=== PATIENT | female | born 1935 | race Caucasian/White ===

== ENCOUNTER 2021-05-20 16:00 | Inpatient (IN) | payer MEDICARE, OTHER ==
[2021-05-20] MEDS ORDERED: Furosemide 20 MG/2 ML VIAL IVPUSH ONE (17:00)
[2021-05-20] MEDS ORDERED: Ondansetron 4 MG/2 ML SDV IVPUSH PRN (17:00)
[2021-05-20] MEDS ORDERED: Acetaminophen 325 MG Tab PO PRN (17:00)
--- NOTE | 2021-05-20 17:02 | PCM.HP.2 ---
H&P History of Present Illness - General Date of Service: 05/20/21 Admit Problem/Dx: Admission Diagnosis/Problem Admission Diagnosis/Problem CHF, Congestive heart failure - History of Present Illness Initial Comments - Free Text/Narative: Patient is an 86-year-old female with past medical history of diabetes, hyperlipidemia, hypertension, possible CKD elevated (creatinine in the past) who comes to the emergency department with her in respiratory distress. Patient has a home pulse oximeter and an oxygen concentrator for the last week secondary to being diagnosed with pneumonia recently and her home O2 sat was in the 60s. Patient does have a nonproductive cough. She denies any fever or shaking chills. She had a negative Covid test approximately 1 week ago. She denies any change to her sense of smell or taste. She has not been nauseous vomiting or having diarrhea. She has had no dysuria or any swelling to her ankles. She denies any other Covid symptoms. Patient is not having any ortho pnea. She does have a history of COPD. She denies any history of CHF. Is here for very cyanotic with an O2 sat of 66 on 2 L nasal cannula. With 5 L nasal cannula she is up to 90% pulse ox. Chest x-ray was significant for pulmonary edema no infiltrate was recognized, patient received IV remdesivir and IV antibiotics for presumed Covid pneumonia but after the work-up was complete with elevated proBNP as well as chest x-ray findings patient was found to be in CHF and treated with IV Lasix. Patient was requiring 5 L of oxygen to keep pulse ox between 91 to 92%. Patient was transferred to [facility] as there were no beds available in [facility]. - Related Data Allergies/Adverse Reactions: Allergies Allergy/AdvReac Type Severity Reaction Status Date / Time No Known Allergies Allergy Verified 05/20/21 16:41 Home Medications: Home Meds Calcium Carbonate [Calcium] 500 mg PO DAILY 08/07/16 [History] Multivit-Min/Iron/Folic/Lutein [Centrum Silver Women Tablet] 1 tab PO DAILY 08/07/16 [History] Simvastatin [Zocor] 40 mg PO BEDTIME 08/07/16 [History] Ibuprofen 200 mg PO Q6H PRN 06/28/19 [History] Gabapentin [Neurontin] 100 mg PO DAILY 05/20/21 [History] Promethazine HCl/Codeine [Prometh-Codein 6.25-10 mg/5 ml] 5 ml PO Q6HR PRN 05/20/21 [History] amLODIPine [Norvasc] 5 mg PO DAILY 05/20/21 [History] azaTHIOprine [Imuran] 100 mg PO DAILY 05/20/21 [History] Past Medical History HEENT History: Reports: Cataract, Hard of Hearing, Impaired Vision Other HEENT History: uses hearing aid Cardiovascular History: Reports: High Cholesterol, Hypertension Respiratory History: Reports: COPD, Other (See Below) Other Respiratory History: hypoxia Gastrointestinal History: Reports: Chronic Constipation, Hemorrhoids Musculoskeletal History: Reports: Arthritis, Back Pain, Chronic Endocrine/Metabolic History: Reports: Obesity/BMI 30+ Oncologic (Cancer) History: Reports: Colon - Infectious Disease History Other Infectious Disease History: Got Flu shot in April. - Past Surgical History HEENT Surgical History: Reports: Cataract Surgery GI Surgical History: Reports: Appendectomy, Colonoscopy Female Surgical History: Reports: Hysterectomy Social & Family History - Family History Cardiac: Reports: [place] Other Cardiac Family History: mother, father - Caffeine Use Caffeine Use: Reports: Coffee Other Caffeine Use: 3 cups/day H&P Review of Systems - Review of Systems: Review Of Systems: See Below General: Reports: Malaise, Weakness, Fatigue. Denies: Fever, Chills Pulmonary: Reports: Shortness of Breath, Cough. Denies: Wheezing, Pleuritic Chest Pain Gastrointestinal: Denies: Abdominal Pain, Anorexia, Black Stool Genitourinary: Denies: Dysuria, Frequency, Burning Musculoskeletal: Denies: Neck Pain, Shoulder Pain, Arm Pain Skin: Reports: Cyanosis. Denies: Jaundice, Mottled, Diaphoresis Psychiatric: Denies: Confusion, Depression, Mood Lability Neurological: Denies: Confusion, Dizziness, Headache Hematologic/Lymphatic: Denies: Anemia, Easy Bleeding, Easy Bruising, Swollen Glands Exam - Exam Exam: See Below - Vital Signs Vital Signs: Last Vital Signs Temp 36.4 C 05/20/21 16:00 Pulse 82 05/20/21 16:00 Resp 20 05/20/21 16:00 BP 136/64 05/20/21 16:00 Pulse Ox 92 L 05/20/21 16:00 Weight: 72.802 kg - Exam Quality Assessment: Supplemental Oxygen General: Alert, Oriented, Cooperative, Mild Distress Neck: Supple, Trachea Midline Lungs: Normal Respiratory Effort, Decreased Breath Sounds, Crackles, Rales Cardiovascular: Regular Rate, Regular Rhythm, Normal S1, Normal S2 GI/Abdominal Exam: Normal Bowel Sounds, Soft Extremities: Normal Inspection, Normal Range of Motion, Pedal Edema Sepsis Event Note - Focused Exam Vital Signs: Vital Signs Temp Pulse Resp BP Pulse Ox 05/20/21 16:00 36.4 C 82 20 136/64 92 L - Problem List (1) Fluid overload SNOMED Code(s): 77996884 ICD Code: E87.70 - FLUID OVERLOAD, UNSPECIFIED Status: Acute Current Visit: Yes (2) Respiratory failure with hypoxia SNOMED Code(s): 97423833599081036 ICD Code: J96.91 - RESPIRATORY FAILURE, UNSPECIFIED WITH HYPOXIA Status: Acute Current Visit: Yes (3) Diabetes mellitus SNOMED Code(s): 81421680 ICD Code: E11.9 - TYPE 2 DIABETES MELLITUS WITHOUT COMPLICATIONS Status: Acute Current Visit: Yes (4) CKD (chronic kidney disease) SNOMED Code(s): 854239971 ICD Code: N18.9 - CHRONIC KIDNEY DISEASE, UNSPECIFIED Status: Acute Current Visit: Yes (5) Hypertension SNOMED Code(s): 93426964 ICD Code: I10 - ESSENTIAL (PRIMARY) HYPERTENSION Status: Acute Current Visit: Yes (6) Hyperlipidemia SNOMED Code(s): 19994492 ICD Code: E78.5 - HYPERLIPIDEMIA, UNSPECIFIED Status: Acute Current Visit: Yes Problem List Initiated/Reviewed/Updated: Yes Orders Last 24hrs: Active Orders 24 hr Category Date Time Status Patient Status [ADT] Routine ADT 05/20/21 16:46 Active Intake and Output Strict [RC] ASDIRECTED Care 05/20/21 17:01 Ordered Oxygen Therapy [RC] PRN Care 05/20/21 16:46 Active RT Aerosol Therapy [RC] ASDIRECTED Care 05/20/21 16:52 Active Telemetry Monitoring [Cardiac Monitoring] [RC] . Care 05/20/21 16:37 Active DIRECTED VTE/DVT Education [RC] PER UNIT ROUTINE Care 05/20/21 16:46 Active Vital Signs [RC] Q4H Care 05/20/21 16:46 Active Weight, Daily [Height and Weight] [RC] DAILY Care 05/20/21 17:01 Ordered Fluid Restriction [DIET] Diet 05/21/21 Breakfast Active Heart Healthy Diet [DIET] Diet 05/20/21 Dinner Active Echo Comp wo Cont [US] Routine Exams 05/20/21 16:54 Ordered BMP [BASIC METABOLIC PANEL,BMP] [CHEM] AM Lab 05/21/21 05:11 Ordered CBC WITH AUTO DIFF [HEME] AM Lab 05/21/21 05:11 Ordered MAGNESIUM [CHEM] AM Lab 05/21/21 05:11 Ordered PHOSPHORUS [CHEM] AM Lab 05/21/21 05:11 Ordered Acetaminophen [TylenoL] Med 05/20/21 17:00 Active 650 mg PO Q4H PRN Albuterol/Ipratropium [DuoNeb 3.0-0.5 MG/3 ML] Med 05/20/21 18:00 Active 3 ml NEB Q4HRRT PRN Furosemide [Lasix] Med 05/20/21 17:00 Once 20 mg IVPUSH NOW ONE Furosemide [Lasix] Med 05/21/21 09:00 Ordered 40 mg IVPUSH BID Heparin Sodium Med 05/20/21 17:00 Active 5,000 units SUBCUT Q8H Ondansetron [Zofran] Med 05/20/21 17:00 Active 4 mg IVPUSH Q4H PRN Pantoprazole [ProTONIX IV] 40 mg Med 05/21/21 09:00 Active Sodium Chloride 0.9% [Normal Saline] 10 ml IV DAILY Resuscitation Status Routine Resus Stat 05/20/21 16:46 Ordered Medication Orders Acetaminophen (Acetaminophen 325 Mg Tab) 650 mg PO Q4H PRN PRN Reason: Pain (Mild 1-3)/fever Albuterol/Ipratropium (Albuterol/Ipratropium 3.0-0.5 Mg/3 Ml Neb Soln) 3 ml NEB Q4HRRT PRN PRN Reason: Shortness Of Breath/wheezing Furosemide (Furosemide 40 Mg/4 Ml Vial) 40 mg IVPUSH BID LETY Furosemide (Furosemide 40 Mg/4 Ml Vial) 20 mg IVPUSH NOW ONE Stop: 05/20/21 17:01 Heparin Sodium (Porcine) (Heparin Sodium 5,000 Units/Ml Vial) 5,000 units SUBCUT Q8H LETY Pantoprazole Sodium 40 mg/ (Sodium Chloride) 10 mls @ 300 mls/hr IV DAILY LETY Ondansetron HCl (Ondansetron 4 Mg/2 Ml Sdv) 4 mg IVPUSH Q4H PRN PRN Reason: Nausea/Vomiting Assessment/Plan Comment:: Patient is a 86-year-old female admitted for fluid overload likely secondary to new onset CHF Troponins 2 sets have been negative, EKG not remarkable for ACS, Patient received 40 mg IV Lasix in the ER, will continue IV Lasix Fluid restriction Cardiac diet 2D echo Duo nebs as needed for shortness of breath IV Zofran for nausea and vomiting Continuous telemetry monitoring Resume home meds as appropriate once medical reconciliation is done Patient may need to be started on low-dose beta-kiki once she is appropriately diuresed Will need outpatient follow-up with cardiology
[2021-05-20] MEDS: Heparin Sodium 5,000 Units/ML Vial SUBCUT SCH (17:52)
[2021-05-20] MEDS: Simvastatin 40 MG Tab PO SCH (22:14)
[2021-05-21] MEDS: Heparin Sodium 5,000 Units/ML Vial SUBCUT SCH ×3 (01:33→17:29)
[2021-05-21] MEDS: Albuterol/Ipratropium 3.0-0.5 MG/3 ML Neb Soln NEB PRN ×2 (01:49→21:58)
[2021-05-21] MEDS: Benzonatate 100 MG Cap PO PRN ×2 (01:49→21:51)
[2021-05-21 07:22] LABS: CARBON DIOXIDE,CO2 30.6 mmol/L (21.0-32.0); POTASSIUM,K 2.9 mmol/L (3.5-5.1)
[2021-05-21] MEDS ORDERED: Pantoprazole 40 MG Vial IV SCH (09:00)
[2021-05-21] MEDS: Gabapentin 100 MG Cap PO SCH (09:11)
[2021-05-21] MEDS: Furosemide 40 MG/4 ML VIAL IVPUSH SCH ×2 (09:23→21:33)
[2021-05-21] MEDS: amLODIPine 5 MG Tab PO SCH (09:31)
[2021-05-21] MEDS: Pantoprazole 40 MG in Sodium Chloride 0.9% 10 ML IV SCH (09:35)
[2021-05-21] MEDS ORDERED: Potassium Chloride 20 MEQ Tab.ER PO ONE (09:39)
--- NOTE | 2021-05-21 12:43 | PCM.PN ---
- General Info Date of Service: 05/21/21 - Review of Systems Systems Review Comment:: shortness of breath has improved. still reports fatigue - Patient Data Vitals - Most Recent: Last Vital Signs Temp 36.7 C 05/21/21 11:57 Pulse 80 05/21/21 11:57 Resp 20 05/21/21 11:57 BP 115/56 L 05/21/21 11:57 Pulse Ox 88 L 05/21/21 11:57 Weight - Most Recent: 71.622 kg I&O - Last 24 Hours: Intake & Output 05/20/21 05/21/21 05/21/21 22:59 06:59 14:59 Intake Total 650 Output Total 550 800 Balance -550 -150 Lab Results Last 24 Hours: Laboratory Results - last 24 hr 05/21/21 05/21/21 Range/Units 05:30 05:30 WBC 11.24 H (4.0-11.0) K/uL RBC 3.91 L (4.30-5.90) M/uL Hgb 11.1 L (12.0-16.0) g/dL Hct 33.1 L (36.0-46.0) % MCV 84.7 (80.0-98.0) fL MCH 28.4 (27.0-32.0) pg MCHC 33.5 (31.0-37.0) g/dL RDW Std Deviation 47.2 (28.0-62.0) fl RDW Coeff of Mili 16 H (11.0-15.0) % Plt Count 342 (150-400) K/uL MPV 10.00 (7.40-12.00) fL Neut % (Auto) 85.6 H (48.0-80.0) % Lymph % (Auto) 8.0 L (16.0-40.0) % [place] % (Auto) 6.3 (0.0-15.0) % Eos % (Auto) 0.0 (0.0-7.0) % Baso % (Auto) 0.1 (0.0-1.5) % Neut # (Auto) 9.6 H (1.4-5.7) K/uL Lymph # (Auto) 0.9 (0.6-2.4) K/uL [place] # (Auto) 0.7 (0.0-0.8) K/uL Eos # (Auto) 0.0 (0.0-0.7) K/uL Baso # (Auto) 0.0 (0.0-0.1) K/uL Nucleated RBC % 0.0 /100WBC Nucleated RBCs # 0 K/uL Sodium 136 (136-145) mmol/L Potassium 2.9 L (3.5-5.1) mmol/L Chloride 96 L (98-107) mmol/L Carbon Dioxide 30.6 (21.0-32.0) mmol/L BUN 13 (7.0-18.0) mg/dL Creatinine 0.9 (0.6-1.0) mg/dL Est Cr Clr Drug Dosing 37.80 mL/min Estimated GFR (MDRD) 59.5 ml/min Glucose 105 (74-106) mg/dL Calcium 8.1 L (8.5-10.1) mg/dL Phosphorus 2.8 (2.6-4.7) mg/dL Magnesium 1.8 (1.8-2.4) mg/dL Med Orders - Current: Current Medications Acetaminophen (Acetaminophen 325 Mg Tab) 650 mg PO Q4H PRN PRN Reason: Pain (Mild 1-3)/fever Albuterol/Ipratropium (Albuterol/Ipratropium 3.0-0.5 Mg/3 Ml Neb Soln) 3 ml NEB Q4HRRT PRN PRN Reason: Shortness Of Breath/wheezing Last Admin: 05/21/21 01:49 Dose: 3 ml Documented by: Amlodipine Besylate (Amlodipine 5 Mg Tab) 5 mg PO DAILY [facility] Last Admin: 05/21/21 09:31 Dose: 5 mg Documented by: Azathioprine (Azathioprine 50 Mg Tab) 100 mg PO DAILY [facility] Benzonatate (Benzonatate 100 Mg Cap) 100 mg PO Q6H PRN PRN Reason: Cough Last Admin: 05/21/21 01:49 Dose: 100 mg Documented by: Furosemide (Furosemide 40 Mg/4 Ml Vial) 40 mg IVPUSH BID [facility] Last Admin: 05/21/21 09:23 Dose: 40 mg Documented by: Gabapentin (Gabapentin 100 Mg Cap) 100 mg PO DAILY [facility] Last Admin: 05/21/21 09:11 Dose: 100 mg Documented by: Heparin Sodium (Porcine) (Heparin Sodium 5,000 Units/Ml Vial) 5,000 units SUBCUT Q8H [facility] Last Admin: 05/21/21 09:15 Dose: 5,000 units Documented by: Pantoprazole Sodium 40 mg/ (Sodium Chloride) 10 mls @ 300 mls/hr IV DAILY [facility] Last Admin: 05/21/21 09:35 Dose: 300 mls/hr Documented by: Ibuprofen (Ibuprofen 200 Mg Tab) 200 mg PO Q6H PRN PRN Reason: Pain (moderate 4-6) Non-Formulary Medication (Calcium Carbonate [Calcium]) 500 mg PO DAILY [facility] Non-Formulary Medication (Multivit-Min/Iron/Folic/Lutein [Centrum Silver Women Tablet]) 1 tab PO DAILY [facility] Ondansetron HCl (Ondansetron 4 Mg/2 Ml Sdv) 4 mg IVPUSH Q4H PRN PRN Reason: Nausea/Vomiting Simvastatin (Simvastatin 40 Mg Tab) 40 mg PO BEDTIME [facility] Last Admin: 05/20/21 22:14 Dose: 40 mg Documented by: Discontinued Medications Furosemide (Furosemide 20 Mg/2 Ml Vial) 20 mg IVPUSH NOW ONE Stop: 05/20/21 17:01 Last Admin: 05/20/21 17:52 Dose: 20 mg Documented by: Potassium Chloride (Potassium Chloride 20 Meq Tab.Er) 60 meq PO ONETIME ONE Stop: 05/21/21 09:40 Last Admin: 05/21/21 10:28 Dose: 60 meq Documented by: - Exam General: Alert, Oriented Neck: Supple Lungs: Clear to Auscultation, Normal Respiratory Effort Cardiovascular: Regular Rate, Regular Rhythm GI/Abdominal Exam: Normal Bowel Sounds, Soft, Non-Tender Extremities: Non-Tender, No Pedal Edema Skin: Warm, Dry, Intact Neurological: No New Focal Deficit - Patient Data Lab Results Last 24 hrs: Laboratory Results - last 24 hr 05/21/21 05/21/21 Range/Units 05:30 05:30 WBC 11.24 H (4.0-11.0) K/uL RBC 3.91 L (4.30-5.90) M/uL Hgb 11.1 L (12.0-16.0) g/dL Hct 33.1 L (36.0-46.0) % MCV 84.7 (80.0-98.0) fL MCH 28.4 (27.0-32.0) pg MCHC 33.5 (31.0-37.0) g/dL RDW Std Deviation 47.2 (28.0-62.0) fl RDW Coeff of Mili 16 H (11.0-15.0) % Plt Count 342 (150-400) K/uL MPV 10.00 (7.40-12.00) fL Neut % (Auto) 85.6 H (48.0-80.0) % Lymph % (Auto) 8.0 L (16.0-40.0) % [place] % (Auto) 6.3 (0.0-15.0) % Eos % (Auto) 0.0 (0.0-7.0) % Baso % (Auto) 0.1 (0.0-1.5) % Neut # (Auto) 9.6 H (1.4-5.7) K/uL Lymph # (Auto) 0.9 (0.6-2.4) K/uL [place] # (Auto) 0.7 (0.0-0.8) K/uL Eos # (Auto) 0.0 (0.0-0.7) K/uL Baso # (Auto) 0.0 (0.0-0.1) K/uL Nucleated RBC % 0.0 /100WBC Nucleated RBCs # 0 K/uL Sodium 136 (136-145) mmol/L Potassium 2.9 L (3.5-5.1) mmol/L Chloride 96 L (98-107) mmol/L Carbon Dioxide 30.6 (21.0-32.0) mmol/L BUN 13 (7.0-18.0) mg/dL Creatinine 0.9 (0.6-1.0) mg/dL Est Cr Clr Drug Dosing 37.80 mL/min Estimated GFR (MDRD) 59.5 ml/min Glucose 105 (74-106) mg/dL Calcium 8.1 L (8.5-10.1) mg/dL Phosphorus 2.8 (2.6-4.7) mg/dL Magnesium 1.8 (1.8-2.4) mg/dL Result Diagrams: 05/21/21 05:30 05/21/21 05:30 Sepsis Event Note - Evaluation Sepsis Screening Result: No Definite Risk - Focused Exam Vital Signs: Vital Signs Temp Pulse Resp BP BP Pulse Ox 05/21/21 11:57 36.7 C 80 20 115/56 L 88 L 05/21/21 09:31 115/55 L 05/21/21 04:15 36.2 C 83 23 H 134/60 90 L - Problem List & Annotations (1) CKD (chronic kidney disease) SNOMED Code(s): 224917638 Code(s): N18.9 - CHRONIC KIDNEY DISEASE, UNSPECIFIED Status: Acute Current Visit: Yes (2) Fluid overload SNOMED Code(s): 03644268 Code(s): E87.70 - FLUID OVERLOAD, UNSPECIFIED Status: Acute Current Visit: Yes - Problem List Review Problem List Initiated/Reviewed/Updated: Yes - My Orders Last 24 Hours: My Active Orders 05/20/21 21:00 Simvastatin [Zocor] 40 mg PO BEDTIME 05/21/21 01:36 Benzonatate [Tessalon Perles] 100 mg PO Q6H PRN 05/21/21 09:00 Gabapentin [Neurontin] 100 mg PO DAILY amLODIPine [Norvasc] 5 mg PO DAILY 05/21/21 09:41 Communication Order [RC] ROUTINE 05/21/21 12:33 Ibuprofen [Motrin] 200 mg PO Q6H PRN 05/21/21 12:45 azaTHIOprine [Imuran] 100 mg PO DAILY 05/21/21 16:00 POTASSIUM,K [CHEM] Routine 05/22/21 05:11 BASIC METABOLIC PANEL,BMP [CHEM] AM CBC WITH AUTO DIFF [HEME] AM MAGNESIUM [CHEM] AM 05/22/21 09:00 Calcium Carbonate [Calcium] 500 mg PO DAILY Multivit-Min/Iron/Folic/Lutein [Centrum Silver Women Tablet] 1 tab PO DAILY - Plan Plan:: 86 yo female admitted for new onset CHF CHF: continue IV lasix, echo pending 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
[2021-05-21] MEDS ORDERED: Ibuprofen 200 MG Tab PO PRN (13:00)
[2021-05-21] MEDS: Simvastatin 40 MG Tab PO SCH (21:33)
[2021-05-22] MEDS: Heparin Sodium 5,000 Units/ML Vial SUBCUT SCH ×3 (01:38→17:15)
[2021-05-22 07:31] LABS: CARBON DIOXIDE,CO2 31.8 mmol/L (21.0-32.0); POTASSIUM,K 3.4 mmol/L (3.5-5.1)
[2021-05-22] MEDS: Pantoprazole 40 MG in Sodium Chloride 0.9% 10 ML IV SCH (09:07)
[2021-05-22] MEDS: Furosemide 40 MG/4 ML VIAL IVPUSH SCH ×2 (09:07→20:29)
[2021-05-22] MEDS: Gabapentin 100 MG Cap PO SCH (09:08)
[2021-05-22] MEDS: Calcium Carbonate 500 MG Tab.Chew PO SCH (09:08)
[2021-05-22] MEDS: Multivitamin Tab PO SCH (09:08)
[2021-05-22] MEDS: amLODIPine 5 MG Tab PO SCH (09:13)
[2021-05-22] MEDS ORDERED: Docusate Sodium 100 MG Cap PO PRN (09:27)
--- NOTE | 2021-05-22 12:02 | PCM.PN ---
- General Info Date of Service: 05/22/21 - Review of Systems Systems Review Comment:: shortness of breath is improving, reports constipation - Patient Data Vitals - Most Recent: Last Vital Signs Temp 36.7 C 05/22/21 07:00 Pulse 73 05/22/21 07:00 Resp 24 H 05/22/21 07:00 BP 126/57 L 05/22/21 09:13 Pulse Ox 93 L 05/22/21 07:00 Weight - Most Recent: 71.441 kg I&O - Last 24 Hours: Intake & Output 05/21/21 05/22/21 05/22/21 22:59 06:59 14:59 Intake Total 550 450 Output Total 950 850 Balance -400 -400 Lab Results Last 24 Hours: Laboratory Results - last 24 hr 05/21/21 05/22/21 05/22/21 Range/Units 16:27 05:49 05:49 WBC 9.22 (4.0-11.0) K/uL RBC 3.79 L (4.30-5.90) M/uL Hgb 10.8 L (12.0-16.0) g/dL Hct 32.4 L (36.0-46.0) % MCV 85.5 (80.0-98.0) fL MCH 28.5 (27.0-32.0) pg MCHC 33.3 (31.0-37.0) g/dL RDW Std Deviation 48.1 (28.0-62.0) fl RDW Coeff of Mili 16 H (11.0-15.0) % Plt Count 344 (150-400) K/uL MPV 9.80 (7.40-12.00) fL Neut % (Auto) 86.3 H (48.0-80.0) % Lymph % (Auto) 3.8 L (16.0-40.0) % [place] % (Auto) 9.8 (0.0-15.0) % Eos % (Auto) 0.0 (0.0-7.0) % Baso % (Auto) 0.1 (0.0-1.5) % Neut # (Auto) 8.0 H (1.4-5.7) K/uL Lymph # (Auto) 0.4 L (0.6-2.4) K/uL [place] # (Auto) 0.9 H (0.0-0.8) K/uL Eos # (Auto) 0.0 (0.0-0.7) K/uL Baso # (Auto) 0.0 (0.0-0.1) K/uL Nucleated RBC % 0.0 /100WBC Nucleated RBCs # 0 K/uL Sodium 136 (136-145) mmol/L Potassium 3.6 3.4 L (3.5-5.1) mmol/L Chloride 98 (98-107) mmol/L Carbon Dioxide 31.8 (21.0-32.0) mmol/L BUN 18 (7.0-18.0) mg/dL Creatinine 0.9 (0.6-1.0) mg/dL Est Cr Clr Drug Dosing 37.80 mL/min Estimated GFR (MDRD) 59.5 ml/min Glucose 120 H (74-106) mg/dL Calcium 8.0 L (8.5-10.1) mg/dL Magnesium 1.9 (1.8-2.4) mg/dL Med Orders - Current: Current Medications Acetaminophen (Acetaminophen 325 Mg Tab) 650 mg PO Q4H PRN PRN Reason: Pain (Mild 1-3)/fever Albuterol/Ipratropium (Albuterol/Ipratropium 3.0-0.5 Mg/3 Ml Neb Soln) 3 ml NEB Q4HRRT PRN PRN Reason: Shortness Of Breath/wheezing Last Admin: 05/21/21 21:58 Dose: 3 ml Documented by: Amlodipine Besylate (Amlodipine 5 Mg Tab) 5 mg PO DAILY [facility] Last Admin: 05/22/21 09:13 Dose: 5 mg Documented by: Azathioprine (Azathioprine 50 Mg Tab) 100 mg PO DAILY [facility] Last Admin: 05/22/21 09:08 Dose: 100 mg Documented by: Benzonatate (Benzonatate 100 Mg Cap) 100 mg PO Q6H PRN PRN Reason: Cough Last Admin: 05/21/21 21:51 Dose: 100 mg Documented by: Calcium Carbonate/Glycine (Calcium Carbonate 500 Mg Tab.Chew) 500 mg PO DAILY [facility] Last Admin: 05/22/21 09:08 Dose: 500 mg Documented by: Docusate Sodium (Docusate Sodium 100 Mg Cap) 100 mg PO DAILY PRN PRN Reason: Constipation Furosemide (Furosemide 40 Mg/4 Ml Vial) 40 mg IVPUSH BID [facility] Last Admin: 05/22/21 09:07 Dose: 40 mg Documented by: Gabapentin (Gabapentin 100 Mg Cap) 100 mg PO DAILY [facility] Last Admin: 05/22/21 09:08 Dose: 100 mg Documented by: Heparin Sodium (Porcine) (Heparin Sodium 5,000 Units/Ml Vial) 5,000 units SUBCUT Q8H [facility] Last Admin: 05/22/21 09:07 Dose: 5,000 units Documented by: Pantoprazole Sodium 40 mg/ (Sodium Chloride) 10 mls @ 300 mls/hr IV DAILY [facility] Last Admin: 05/22/21 09:07 Dose: 300 mls/hr Documented by: Ibuprofen (Ibuprofen 200 Mg Tab) 200 mg PO Q6H PRN PRN Reason: Pain (moderate 4-6) Multivitamins/Minerals/Vitamin C (Multivitamin Tab) 1 tab PO DAILY [facility] Last Admin: 05/22/21 09:08 Dose: 1 tab Documented by: Ondansetron HCl (Ondansetron 4 Mg/2 Ml Sdv) 4 mg IVPUSH Q4H PRN PRN Reason: Nausea/Vomiting Potassium Chloride (Potassium Chloride 20 Meq Tab.Er) 40 meq PO ONETIME ONE Stop: 05/22/21 11:59 Simvastatin (Simvastatin 40 Mg Tab) 40 mg PO BEDTIME [facility] Last Admin: 05/21/21 21:33 Dose: 40 mg Documented by: Discontinued Medications Furosemide (Furosemide 20 Mg/2 Ml Vial) 20 mg IVPUSH NOW ONE Stop: 05/20/21 17:01 Last Admin: 05/20/21 17:52 Dose: 20 mg Documented by: Potassium Chloride (Potassium Chloride 20 Meq Tab.Er) 60 meq PO ONETIME ONE Stop: 05/21/21 09:40 Last Admin: 05/21/21 10:28 Dose: 60 meq Documented by: - Exam General: Alert, Oriented Neck: Supple Lungs: Normal Respiratory Effort, Crackles Cardiovascular: Regular Rate, Regular Rhythm GI/Abdominal Exam: Soft, Non-Tender, No Distention Extremities: Non-Tender, No Pedal Edema Skin: Warm, Dry, Intact Neurological: No New Focal Deficit - Patient Data Lab Results Last 24 hrs: Laboratory Results - last 24 hr 05/21/21 05/22/21 05/22/21 Range/Units 16:27 05:49 05:49 WBC 9.22 (4.0-11.0) K/uL RBC 3.79 L (4.30-5.90) M/uL Hgb 10.8 L (12.0-16.0) g/dL Hct 32.4 L (36.0-46.0) % MCV 85.5 (80.0-98.0) fL MCH 28.5 (27.0-32.0) pg MCHC 33.3 (31.0-37.0) g/dL RDW Std Deviation 48.1 (28.0-62.0) fl RDW Coeff of Mili 16 H (11.0-15.0) % Plt Count 344 (150-400) K/uL MPV 9.80 (7.40-12.00) fL Neut % (Auto) 86.3 H (48.0-80.0) % Lymph % (Auto) 3.8 L (16.0-40.0) % [place] % (Auto) 9.8 (0.0-15.0) % Eos % (Auto) 0.0 (0.0-7.0) % Baso % (Auto) 0.1 (0.0-1.5) % Neut # (Auto) 8.0 H (1.4-5.7) K/uL Lymph # (Auto) 0.4 L (0.6-2.4) K/uL [place] # (Auto) 0.9 H (0.0-0.8) K/uL Eos # (Auto) 0.0 (0.0-0.7) K/uL Baso # (Auto) 0.0 (0.0-0.1) K/uL Nucleated RBC % 0.0 /100WBC Nucleated RBCs # 0 K/uL Sodium 136 (136-145) mmol/L Potassium 3.6 3.4 L (3.5-5.1) mmol/L Chloride 98 (98-107) mmol/L Carbon Dioxide 31.8 (21.0-32.0) mmol/L BUN 18 (7.0-18.0) mg/dL Creatinine 0.9 (0.6-1.0) mg/dL Est Cr Clr Drug Dosing 37.80 mL/min Estimated GFR (MDRD) 59.5 ml/min Glucose 120 H (74-106) mg/dL Calcium 8.0 L (8.5-10.1) mg/dL Magnesium 1.9 (1.8-2.4) mg/dL Result Diagrams: 05/22/21 05:49 05/22/21 05:49 Sepsis Event Note - Evaluation Sepsis Screening Result: No Definite Risk - Focused Exam Vital Signs: Vital Signs Temp Pulse Resp BP BP Pulse Ox 05/22/21 09:13 126/57 L 05/22/21 07:00 36.7 C 73 24 H 126/57 L 93 L 05/22/21 03:43 36.1 C 84 21 H 119/57 L 89 L - Problem List & Annotations (1) CKD (chronic kidney disease) SNOMED Code(s): 258944517 Code(s): N18.9 - CHRONIC KIDNEY DISEASE, UNSPECIFIED Status: Acute Current Visit: Yes (2) Fluid overload SNOMED Code(s): 67726644 Code(s): E87.70 - FLUID OVERLOAD, UNSPECIFIED Status: Acute Current Visit: Yes - Problem List Review Problem List Initiated/Reviewed/Updated: Yes - My Orders Last 24 Hours: My Active Orders 05/21/21 13:00 Ibuprofen [Motrin] 200 mg PO Q6H PRN azaTHIOprine [Imuran] 100 mg PO DAILY 05/22/21 09:00 Calcium Carbonate [Tums] 500 mg PO DAILY Multivitamins [Tab-A-Connie] 1 tab PO DAILY 05/22/21 09:27 Docusate Sodium [Colace] 100 mg PO DAILY PRN 05/22/21 11:58 Potassium Chloride [Klor-Con M20] 40 meq PO ONETIME ONE 05/23/21 05:11 BASIC METABOLIC PANEL,BMP [CHEM] AM CBC WITH AUTO DIFF [HEME] AM MAGNESIUM [CHEM] AM 05/24/21 05:11 BASIC METABOLIC PANEL,BMP [CHEM] AM CBC WITH AUTO DIFF [HEME] AM MAGNESIUM [CHEM] AM 05/25/21 05:11 BASIC METABOLIC PANEL,BMP [CHEM] AM CBC WITH AUTO DIFF [HEME] AM MAGNESIUM [CHEM] AM - Plan Plan:: 86 yo female admitted for new onset CHF Hypoxia: on 5 L NC CHF: continue IV lasix, echo pending 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
[2021-05-22] MEDS ORDERED: Potassium Chloride 20 MEQ Tab.ER PO ONE (12:05)
[2021-05-22] MEDS: Albuterol/Ipratropium 3.0-0.5 MG/3 ML Neb Soln NEB PRN ×2 (14:16→21:43)
[2021-05-22] MEDS: Benzonatate 100 MG Cap PO PRN ×2 (14:40→21:43)
[2021-05-22] MEDS: Simvastatin 40 MG Tab PO SCH (20:29)
[2021-05-23] MEDS: Heparin Sodium 5,000 Units/ML Vial SUBCUT SCH ×3 (00:51→17:08)
[2021-05-23 07:49] LABS: CARBON DIOXIDE,CO2 31.7 mmol/L (21.0-32.0); POTASSIUM,K 3.8 mmol/L (3.5-5.1)
[2021-05-23] MEDS: Furosemide 40 MG/4 ML VIAL IVPUSH SCH ×2 (08:45→21:12)
[2021-05-23] MEDS: Pantoprazole 40 MG in Sodium Chloride 0.9% 10 ML IV SCH (08:45)
[2021-05-23] MEDS: Calcium Carbonate 500 MG Tab.Chew PO SCH (08:46)
[2021-05-23] MEDS: Multivitamin Tab PO SCH (08:46)
[2021-05-23] MEDS: Gabapentin 100 MG Cap PO SCH (08:46)
[2021-05-23] MEDS: amLODIPine 5 MG Tab PO SCH (08:53)
--- NOTE | 2021-05-23 12:52 | PCM.PN ---
- General Info Date of Service: 05/23/21 - Review of Systems Systems Review Comment:: feeling a little bit better today compared to yesterday, "sydnee is working" - Patient Data Vitals - Most Recent: Last Vital Signs Temp 36.4 C 05/23/21 08:00 Pulse 79 05/23/21 08:00 Resp 20 05/23/21 08:00 BP 113/48 L 05/23/21 08:53 Pulse Ox 95 05/23/21 08:00 Weight - Most Recent: 70.715 kg I&O - Last 24 Hours: Intake & Output 05/22/21 05/23/21 05/23/21 22:59 06:59 14:59 Intake Total 820 850 Output Total 850 1000 Balance -30 -150 Lab Results Last 24 Hours: Laboratory Results - last 24 hr 05/23/21 05/23/21 Range/Units 05:33 05:33 WBC 8.89 (4.0-11.0) K/uL RBC 3.92 L (4.30-5.90) M/uL Hgb 11.1 L (12.0-16.0) g/dL Hct 34.0 L (36.0-46.0) % MCV 86.7 (80.0-98.0) fL MCH 28.3 (27.0-32.0) pg MCHC 32.6 (31.0-37.0) g/dL RDW Std Deviation 49.3 (28.0-62.0) fl RDW Coeff of Mili 16 H (11.0-15.0) % Plt Count 375 (150-400) K/uL MPV 9.80 (7.40-12.00) fL Neut % (Auto) 84.0 H (48.0-80.0) % Lymph % (Auto) 5.8 L (16.0-40.0) % [place] % (Auto) 10.0 (0.0-15.0) % Eos % (Auto) 0.0 (0.0-7.0) % Baso % (Auto) 0.2 (0.0-1.5) % Neut # (Auto) 7.5 H (1.4-5.7) K/uL Lymph # (Auto) 0.5 L (0.6-2.4) K/uL [place] # (Auto) 0.9 H (0.0-0.8) K/uL Eos # (Auto) 0.0 (0.0-0.7) K/uL Baso # (Auto) 0.0 (0.0-0.1) K/uL Nucleated RBC % 0.0 /100WBC Nucleated RBCs # 0 K/uL Sodium 136 (136-145) mmol/L Potassium 3.8 (3.5-5.1) mmol/L Chloride 98 (98-107) mmol/L Carbon Dioxide 31.7 (21.0-32.0) mmol/L BUN 21 H (7.0-18.0) mg/dL Creatinine 1.0 (0.6-1.0) mg/dL Est Cr Clr Drug Dosing 34.02 mL/min Estimated GFR (MDRD) 52.7 ml/min Glucose 107 H (74-106) mg/dL Calcium 8.6 (8.5-10.1) mg/dL Magnesium 1.9 (1.8-2.4) mg/dL Med Orders - Current: Current Medications Acetaminophen (Acetaminophen 325 Mg Tab) 650 mg PO Q4H PRN PRN Reason: Pain (Mild 1-3)/fever Albuterol/Ipratropium (Albuterol/Ipratropium 3.0-0.5 Mg/3 Ml Neb Soln) 3 ml NEB Q4HRRT PRN PRN Reason: Shortness Of Breath/wheezing Last Admin: 05/22/21 21:43 Dose: 3 ml Documented by: Amlodipine Besylate (Amlodipine 5 Mg Tab) 5 mg PO DAILY [facility] Last Admin: 05/23/21 08:53 Dose: 5 mg Documented by: Azathioprine (Azathioprine 50 Mg Tab) 100 mg PO DAILY [facility] Last Admin: 05/23/21 08:47 Dose: 100 mg Documented by: Benzonatate (Benzonatate 100 Mg Cap) 100 mg PO Q6H PRN PRN Reason: Cough Last Admin: 05/22/21 21:43 Dose: 100 mg Documented by: Calcium Carbonate/Glycine (Calcium Carbonate 500 Mg Tab.Chew) 500 mg PO DAILY [facility] Last Admin: 05/23/21 08:46 Dose: 500 mg Documented by: Docusate Sodium (Docusate Sodium 100 Mg Cap) 100 mg PO DAILY PRN PRN Reason: Constipation Last Admin: 05/23/21 04:34 Dose: 100 mg Documented by: Furosemide (Furosemide 40 Mg/4 Ml Vial) 40 mg IVPUSH BID [facility] Last Admin: 05/23/21 08:45 Dose: 40 mg Documented by: Gabapentin (Gabapentin 100 Mg Cap) 100 mg PO DAILY [facility] Last Admin: 05/23/21 08:46 Dose: 100 mg Documented by: Heparin Sodium (Porcine) (Heparin Sodium 5,000 Units/Ml Vial) 5,000 units SUBCUT Q8H [facility] Last Admin: 05/23/21 08:46 Dose: 5,000 units Documented by: Pantoprazole Sodium 40 mg/ (Sodium Chloride) 10 mls @ 300 mls/hr IV DAILY [facility] Last Admin: 05/23/21 08:45 Dose: 300 mls/hr Documented by: Ibuprofen (Ibuprofen 200 Mg Tab) 200 mg PO Q6H PRN PRN Reason: Pain (moderate 4-6) Multivitamins/Minerals/Vitamin C (Multivitamin Tab) 1 tab PO DAILY [facility] Last Admin: 05/23/21 08:46 Dose: 1 tab Documented by: Ondansetron HCl (Ondansetron 4 Mg/2 Ml Sdv) 4 mg IVPUSH Q4H PRN PRN Reason: Nausea/Vomiting Simvastatin (Simvastatin 40 Mg Tab) 40 mg PO BEDTIME [facility] Last Admin: 05/22/21 20:29 Dose: 40 mg Documented by: Discontinued Medications Furosemide (Furosemide 20 Mg/2 Ml Vial) 20 mg IVPUSH NOW ONE Stop: 05/20/21 17:01 Last Admin: 05/20/21 17:52 Dose: 20 mg Documented by: Potassium Chloride (Potassium Chloride 20 Meq Tab.Er) 60 meq PO ONETIME ONE Stop: 05/21/21 09:40 Last Admin: 05/21/21 10:28 Dose: 60 meq Documented by: Potassium Chloride (Potassium Chloride 20 Meq Tab.Er) 40 meq PO ONETIME ONE Stop: 05/22/21 12:06 Last Admin: 05/22/21 13:04 Dose: 40 meq Documented by: - Exam General: Alert, Oriented Neck: Supple Lungs: Clear to Auscultation, Normal Respiratory Effort Cardiovascular: Regular Rate, Regular Rhythm GI/Abdominal Exam: Normal Bowel Sounds, Soft, Non-Tender Extremities: Non-Tender, No Pedal Edema - Patient Data Lab Results Last 24 hrs: Laboratory Results - last 24 hr 05/23/21 05/23/21 Range/Units 05:33 05:33 WBC 8.89 (4.0-11.0) K/uL RBC 3.92 L (4.30-5.90) M/uL Hgb 11.1 L (12.0-16.0) g/dL Hct 34.0 L (36.0-46.0) % MCV 86.7 (80.0-98.0) fL MCH 28.3 (27.0-32.0) pg MCHC 32.6 (31.0-37.0) g/dL RDW Std Deviation 49.3 (28.0-62.0) fl RDW Coeff of Mili 16 H (11.0-15.0) % Plt Count 375 (150-400) K/uL MPV 9.80 (7.40-12.00) fL Neut % (Auto) 84.0 H (48.0-80.0) % Lymph % (Auto) 5.8 L (16.0-40.0) % [place] % (Auto) 10.0 (0.0-15.0) % Eos % (Auto) 0.0 (0.0-7.0) % Baso % (Auto) 0.2 (0.0-1.5) % Neut # (Auto) 7.5 H (1.4-5.7) K/uL Lymph # (Auto) 0.5 L (0.6-2.4) K/uL [place] # (Auto) 0.9 H (0.0-0.8) K/uL Eos # (Auto) 0.0 (0.0-0.7) K/uL Baso # (Auto) 0.0 (0.0-0.1) K/uL Nucleated RBC % 0.0 /100WBC Nucleated RBCs # 0 K/uL Sodium 136 (136-145) mmol/L Potassium 3.8 (3.5-5.1) mmol/L Chloride 98 (98-107) mmol/L Carbon Dioxide 31.7 (21.0-32.0) mmol/L BUN 21 H (7.0-18.0) mg/dL Creatinine 1.0 (0.6-1.0) mg/dL Est Cr Clr Drug Dosing 34.02 mL/min Estimated GFR (MDRD) 52.7 ml/min Glucose 107 H (74-106) mg/dL Calcium 8.6 (8.5-10.1) mg/dL Magnesium 1.9 (1.8-2.4) mg/dL Result Diagrams: 05/23/21 05:33 05/23/21 05:33 Sepsis Event Note - Evaluation Sepsis Screening Result: No Definite Risk - Focused Exam Vital Signs: Vital Signs Temp Pulse Resp BP BP Pulse Ox 05/23/21 08:53 113/48 L 05/23/21 08:00 36.4 C 79 20 113/48 L 95 05/23/21 04:39 36.6 C 83 21 H 105/52 L 92 L 05/23/21 00:53 36.6 C 81 21 H 104/53 L 94 L - Problem List & Annotations (1) CKD (chronic kidney disease) SNOMED Code(s): 204436218 Code(s): N18.9 - CHRONIC KIDNEY DISEASE, UNSPECIFIED Status: Acute Current Visit: Yes (2) Fluid overload SNOMED Code(s): 15425881 Code(s): E87.70 - FLUID OVERLOAD, UNSPECIFIED Status: Acute Current Visit: Yes - Problem List Review Problem List Initiated/Reviewed/Updated: Yes - My Orders Last 24 Hours: My Active Orders 05/24/21 05:11 BASIC METABOLIC PANEL,BMP [CHEM] AM CBC WITH AUTO DIFF [HEME] AM MAGNESIUM [CHEM] AM 05/25/21 05:11 BASIC METABOLIC PANEL,BMP [CHEM] AM CBC WITH AUTO DIFF [HEME] AM MAGNESIUM [CHEM] AM - Plan Plan:: 86 yo female admitted for new onset CHF Hypoxia: on 5 L NC CHF: continue IV lasix 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
--- NOTE | 2021-05-23 14:11 | ECHO ---
EXAM DATE: 05/20/21 PATIENT'S AGE: 86 The ECHO report has been scanned into [employer] and can be seen in this patient's EMR (Electronic Medical Record) under the REPORTS section. The report has also been scanned into PACS. MERRILL
[2021-05-23] MEDS: Simvastatin 40 MG Tab PO SCH (21:12)
[2021-05-24] MEDS: Heparin Sodium 5,000 Units/ML Vial SUBCUT SCH ×3 (00:37→17:41)
[2021-05-24] MEDS: Albuterol/Ipratropium 3.0-0.5 MG/3 ML Neb Soln NEB PRN (00:37)
[2021-05-24] MEDS ORDERED: Bisacodyl 10 MG Supp RECTAL ONE (06:57)
--- NOTE | 2021-05-24 07:00 | PCM.PN ---
- General Info Date of Service: 05/24/21 - Review of Systems Systems Review Comment:: reports breathing is better, reports constipation - Patient Data Vitals - Most Recent: Last Vital Signs Temp 36.9 C 05/24/21 04:34 Pulse 86 05/24/21 04:34 Resp 20 05/24/21 04:34 BP 101/54 L 05/24/21 04:34 Pulse Ox 93 L 05/24/21 04:34 Weight - Most Recent: 69.49 kg I&O - Last 24 Hours: Intake & Output 05/23/21 05/23/21 05/24/21 14:59 22:59 06:59 Intake Total 820 800 Output Total 1150 1200 Balance -330 -400 Lab Results Last 24 Hours: Laboratory Results - last 24 hr 05/23/21 05/23/21 05/24/21 Range/Units 05:33 05:33 06:23 WBC 8.89 7.81 (4.0-11.0) K/uL RBC 3.92 L 4.13 L (4.30-5.90) M/uL Hgb 11.1 L 11.5 L (12.0-16.0) g/dL Hct 34.0 L 35.6 L (36.0-46.0) % MCV 86.7 86.2 (80.0-98.0) fL MCH 28.3 27.8 (27.0-32.0) pg MCHC 32.6 32.3 (31.0-37.0) g/dL RDW Std Deviation 49.3 48.8 (28.0-62.0) fl RDW Coeff of Mili 16 H 16 H (11.0-15.0) % Plt Count 375 406 H (150-400) K/uL MPV 9.80 9.50 (7.40-12.00) fL Neut % (Auto) 84.0 H 83.6 H (48.0-80.0) % Lymph % (Auto) 5.8 L 5.2 L (16.0-40.0) % [place] % (Auto) 10.0 11.1 (0.0-15.0) % Eos % (Auto) 0.0 0.0 (0.0-7.0) % Baso % (Auto) 0.2 0.1 (0.0-1.5) % Neut # (Auto) 7.5 H 6.5 H (1.4-5.7) K/uL Lymph # (Auto) 0.5 L 0.4 L (0.6-2.4) K/uL [place] # (Auto) 0.9 H 0.9 H (0.0-0.8) K/uL Eos # (Auto) 0.0 0.0 (0.0-0.7) K/uL Baso # (Auto) 0.0 0.0 (0.0-0.1) K/uL Nucleated RBC % 0.0 0.0 /100WBC Nucleated RBCs # 0 0 K/uL Sodium 136 (136-145) mmol/L Potassium 3.8 (3.5-5.1) mmol/L Chloride 98 (98-107) mmol/L Carbon Dioxide 31.7 (21.0-32.0) mmol/L BUN 21 H (7.0-18.0) mg/dL Creatinine 1.0 (0.6-1.0) mg/dL Est Cr Clr Drug Dosing 34.02 mL/min Estimated GFR (MDRD) 52.7 ml/min Glucose 107 H (74-106) mg/dL Calcium 8.6 (8.5-10.1) mg/dL Magnesium 1.9 (1.8-2.4) mg/dL Med Orders - Current: Current Medications Acetaminophen (Acetaminophen 325 Mg Tab) 650 mg PO Q4H PRN PRN Reason: Pain (Mild 1-3)/fever Amlodipine Besylate (Amlodipine 5 Mg Tab) 5 mg PO DAILY [facility] Last Admin: 05/23/21 08:53 Dose: 5 mg Documented by: Azathioprine (Azathioprine 50 Mg Tab) 100 mg PO DAILY [facility] Last Admin: 05/23/21 08:47 Dose: 100 mg Documented by: Benzonatate (Benzonatate 100 Mg Cap) 100 mg PO Q6H PRN PRN Reason: Cough Last Admin: 05/22/21 21:43 Dose: 100 mg Documented by: Bisacodyl (Bisacodyl 10 Mg Supp) 10 mg RECTAL ONETIME ONE Stop: 05/24/21 06:58 Calcium Carbonate/Glycine (Calcium Carbonate 500 Mg Tab.Chew) 500 mg PO DAILY [facility] Last Admin: 05/23/21 08:46 Dose: 500 mg Documented by: Docusate Sodium (Docusate Sodium 100 Mg Cap) 100 mg PO DAILY PRN PRN Reason: Constipation Last Admin: 05/23/21 04:34 Dose: 100 mg Documented by: Furosemide (Furosemide 40 Mg/4 Ml Vial) 40 mg IVPUSH BID [facility] Last Admin: 05/23/21 21:12 Dose: 40 mg Documented by: Gabapentin (Gabapentin 100 Mg Cap) 100 mg PO DAILY [facility] Last Admin: 05/23/21 08:46 Dose: 100 mg Documented by: Heparin Sodium (Porcine) (Heparin Sodium 5,000 Units/Ml Vial) 5,000 units SUBCUT Q8H [facility] Last Admin: 05/24/21 00:37 Dose: 5,000 units Documented by: Pantoprazole Sodium 40 mg/ (Sodium Chloride) 10 mls @ 300 mls/hr IV DAILY [facility] Last Admin: 05/23/21 08:45 Dose: 300 mls/hr Documented by: Ibuprofen (Ibuprofen 200 Mg Tab) 200 mg PO Q6H PRN PRN Reason: Pain (moderate 4-6) Multivitamins/Minerals/Vitamin C (Multivitamin Tab) 1 tab PO DAILY [facility] Last Admin: 05/23/21 08:46 Dose: 1 tab Documented by: Ondansetron HCl (Ondansetron 4 Mg/2 Ml Sdv) 4 mg IVPUSH Q4H PRN PRN Reason: Nausea/Vomiting Polyethylene Glycol (Polyethylene Glycol 3350 Powder 17 Gm Packet) 17 gm PO DAILY [facility] Simvastatin (Simvastatin 40 Mg Tab) 40 mg PO BEDTIME [facility] Last Admin: 05/23/21 21:12 Dose: 40 mg Documented by: Discontinued Medications Albuterol/Ipratropium (Albuterol/Ipratropium 3.0-0.5 Mg/3 Ml Neb Soln) 3 ml NEB Q4HRRT PRN PRN Reason: Shortness Of Breath/wheezing Last Admin: 05/24/21 00:37 Dose: 3 ml Documented by: Furosemide (Furosemide 20 Mg/2 Ml Vial) 20 mg IVPUSH NOW ONE Stop: 05/20/21 17:01 Last Admin: 05/20/21 17:52 Dose: 20 mg Documented by: Potassium Chloride (Potassium Chloride 20 Meq Tab.Er) 60 meq PO ONETIME ONE Stop: 05/21/21 09:40 Last Admin: 05/21/21 10:28 Dose: 60 meq Documented by: Potassium Chloride (Potassium Chloride 20 Meq Tab.Er) 40 meq PO ONETIME ONE Stop: 05/22/21 12:06 Last Admin: 05/22/21 13:04 Dose: 40 meq Documented by: - Exam General: Alert, Oriented Neck: Supple Lungs: Normal Respiratory Effort, Crackles Cardiovascular: Regular Rate, Regular Rhythm GI/Abdominal Exam: Soft, Non-Tender, No Distention Extremities: Non-Tender, No Pedal Edema Skin: Warm, Dry, Intact Neurological: No New Focal Deficit - Patient Data Lab Results Last 24 hrs: Laboratory Results - last 24 hr 05/23/21 05/23/21 05/24/21 Range/Units 05:33 05:33 06:23 WBC 8.89 7.81 (4.0-11.0) K/uL RBC 3.92 L 4.13 L (4.30-5.90) M/uL Hgb 11.1 L 11.5 L (12.0-16.0) g/dL Hct 34.0 L 35.6 L (36.0-46.0) % MCV 86.7 86.2 (80.0-98.0) fL MCH 28.3 27.8 (27.0-32.0) pg MCHC 32.6 32.3 (31.0-37.0) g/dL RDW Std Deviation 49.3 48.8 (28.0-62.0) fl RDW Coeff of Mili 16 H 16 H (11.0-15.0) % Plt Count 375 406 H (150-400) K/uL MPV 9.80 9.50 (7.40-12.00) fL Neut % (Auto) 84.0 H 83.6 H (48.0-80.0) % Lymph % (Auto) 5.8 L 5.2 L (16.0-40.0) % [place] % (Auto) 10.0 11.1 (0.0-15.0) % Eos % (Auto) 0.0 0.0 (0.0-7.0) % Baso % (Auto) 0.2 0.1 (0.0-1.5) % Neut # (Auto) 7.5 H 6.5 H (1.4-5.7) K/uL Lymph # (Auto) 0.5 L 0.4 L (0.6-2.4) K/uL [place] # (Auto) 0.9 H 0.9 H (0.0-0.8) K/uL Eos # (Auto) 0.0 0.0 (0.0-0.7) K/uL Baso # (Auto) 0.0 0.0 (0.0-0.1) K/uL Nucleated RBC % 0.0 0.0 /100WBC Nucleated RBCs # 0 0 K/uL Sodium 136 (136-145) mmol/L Potassium 3.8 (3.5-5.1) mmol/L Chloride 98 (98-107) mmol/L Carbon Dioxide 31.7 (21.0-32.0) mmol/L BUN 21 H (7.0-18.0) mg/dL Creatinine 1.0 (0.6-1.0) mg/dL Est Cr Clr Drug Dosing 34.02 mL/min Estimated GFR (MDRD) 52.7 ml/min Glucose 107 H (74-106) mg/dL Calcium 8.6 (8.5-10.1) mg/dL Magnesium 1.9 (1.8-2.4) mg/dL Result Diagrams: 05/24/21 06:23 05/23/21 05:33 Sepsis Event Note - Evaluation Sepsis Screening Result: No Definite Risk - Focused Exam Vital Signs: Vital Signs Temp Pulse Resp BP Pulse Ox 05/24/21 04:34 36.9 C 86 20 101/54 L 93 L 05/24/21 00:30 36.7 C 86 24 H 93/51 L 93 L 05/23/21 20:00 36.8 C 86 20 110/50 L 94 L - Problem List & Annotations (1) CKD (chronic kidney disease) SNOMED Code(s): 036635167 Code(s): N18.9 - CHRONIC KIDNEY DISEASE, UNSPECIFIED Status: Acute Current Visit: Yes (2) Fluid overload SNOMED Code(s): 50978379 Code(s): E87.70 - FLUID OVERLOAD, UNSPECIFIED Status: Acute Current Visit: Yes - Problem List Review Problem List Initiated/Reviewed/Updated: Yes - My Orders Last 24 Hours: My Active Orders 05/24/21 06:23 BASIC METABOLIC PANEL,BMP [CHEM] AM MAGNESIUM [CHEM] AM 05/24/21 06:57 PT Evaluation and Treatment [CONS] Routine bisacodyL [Dulcolax] 10 mg RECTAL ONETIME ONE 05/24/21 09:00 polyethylene glycoL 3350 [MiraLAX] 17 gm PO DAILY 05/24/21 12:00 Albuterol/Ipratropium [DuoNeb 3.0-0.5 MG/3 ML] 3 ml NEB Q6HRRT 05/25/21 05:11 BASIC METABOLIC PANEL,BMP [CHEM] AM CBC WITH AUTO DIFF [HEME] AM MAGNESIUM [CHEM] AM - Plan Plan:: 86 yo female admitted for new onset CHF Hypoxia: on 4 L NC CHF: continue IV lasix 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 constipation: will try suppository and bowel regiment
[2021-05-24 07:19] LABS: CARBON DIOXIDE,CO2 32.8 mmol/L (21.0-32.0); POTASSIUM,K 3.8 mmol/L (3.5-5.1)
[2021-05-24] MEDS: Gabapentin 100 MG Cap PO SCH (08:49)
[2021-05-24] MEDS: Multivitamin Tab PO SCH (08:50)
[2021-05-24] MEDS: Calcium Carbonate 500 MG Tab.Chew PO SCH (08:52)
[2021-05-24] MEDS: Furosemide 40 MG/4 ML VIAL IVPUSH SCH ×2 (08:53→20:14)
[2021-05-24] MEDS: Polyethylene Glycol 3350 Powder 17 GM Packet PO SCH (08:54)
[2021-05-24] MEDS: Pantoprazole 40 MG in Sodium Chloride 0.9% 10 ML IV SCH (08:54)
[2021-05-24] MEDS: amLODIPine 5 MG Tab PO SCH (09:13)
[2021-05-24] MEDS: Albuterol/Ipratropium 3.0-0.5 MG/3 ML Neb Soln NEB SCH ×3 (12:17→23:47)
[2021-05-24] MEDS: Simvastatin 40 MG Tab PO SCH (20:14)
[2021-05-25 06:20] LABS: CARBON DIOXIDE,CO2 37.1 mmol/L (21.0-32.0); POTASSIUM,K 4.4 mmol/L (3.5-5.1)
[2021-05-25] MEDS: Albuterol/Ipratropium 3.0-0.5 MG/3 ML Neb Soln NEB SCH ×3 (07:00→17:14)
[2021-05-25] MEDS: Gabapentin 100 MG Cap PO SCH (08:02)
[2021-05-25] MEDS: Multivitamin Tab PO SCH (08:02)
[2021-05-25] MEDS: Calcium Carbonate 500 MG Tab.Chew PO SCH (08:03)
[2021-05-25] MEDS: Pantoprazole 40 MG in Sodium Chloride 0.9% 10 ML IV SCH (08:05)
[2021-05-25] MEDS: Polyethylene Glycol 3350 Powder 17 GM Packet PO SCH (08:05)
[2021-05-25] MEDS: Heparin Sodium 5,000 Units/ML Vial SUBCUT SCH ×3 (08:05→17:14)
[2021-05-25] MEDS: Furosemide 40 MG/4 ML VIAL IVPUSH SCH (08:05)
[2021-05-25] MEDS: amLODIPine 5 MG Tab PO SCH (08:24)
--- NOTE | 2021-05-25 12:30 | PCM.PN ---
- General Info Date of Service: 05/25/21 - Review of Systems Systems Review Comment:: reports shortness of breath worsening today - Patient Data Vitals - Most Recent: Last Vital Signs Temp 37.0 C 05/25/21 12:04 Pulse 88 05/25/21 12:04 Resp 22 H 05/25/21 12:04 BP 94/51 L 05/25/21 12:04 Pulse Ox 92 L 05/25/21 12:04 Weight - Most Recent: 69.513 kg I&O - Last 24 Hours: Intake & Output 05/24/21 05/25/21 05/25/21 22:59 06:59 14:59 Intake Total 500 500 Output Total 400 800 Balance 100 -300 Lab Results Last 24 Hours: Laboratory Results - last 24 hr 05/25/21 05/25/21 Range/Units 05:25 05:25 WBC 8.26 (4.0-11.0) K/uL RBC 3.97 L (4.30-5.90) M/uL Hgb 11.4 L (12.0-16.0) g/dL Hct 34.3 L (36.0-46.0) % MCV 86.4 (80.0-98.0) fL MCH 28.7 (27.0-32.0) pg MCHC 33.2 (31.0-37.0) g/dL RDW Std Deviation 49.9 (28.0-62.0) fl RDW Coeff of Mili 16 H (11.0-15.0) % Plt Count 367 (150-400) K/uL MPV 9.70 (7.40-12.00) fL Neut % (Auto) 82.6 H (48.0-80.0) % Lymph % (Auto) 8.4 L (16.0-40.0) % [place] % (Auto) 8.8 (0.0-15.0) % Eos % (Auto) 0.0 (0.0-7.0) % Baso % (Auto) 0.2 (0.0-1.5) % Neut # (Auto) 6.8 H (1.4-5.7) K/uL Lymph # (Auto) 0.7 (0.6-2.4) K/uL [place] # (Auto) 0.7 (0.0-0.8) K/uL Eos # (Auto) 0.0 (0.0-0.7) K/uL Baso # (Auto) 0.0 (0.0-0.1) K/uL Nucleated RBC % 0.0 /100WBC Nucleated RBCs # 0 K/uL Sodium 137 (136-145) mmol/L Potassium 4.4 (3.5-5.1) mmol/L Chloride 97 L (98-107) mmol/L Carbon Dioxide 37.1 H (21.0-32.0) mmol/L BUN 29 H (7.0-18.0) mg/dL Creatinine 1.2 H (0.6-1.0) mg/dL Est Cr Clr Drug Dosing 28.35 mL/min Estimated GFR (MDRD) 42.7 ml/min Glucose 111 H (74-106) mg/dL Calcium 8.3 L (8.5-10.1) mg/dL Magnesium 1.9 (1.8-2.4) mg/dL Med Orders - Current: Current Medications Acetaminophen (Acetaminophen 325 Mg Tab) 650 mg PO Q4H PRN PRN Reason: Pain (Mild 1-3)/fever Albuterol/Ipratropium (Albuterol/Ipratropium 3.0-0.5 Mg/3 Ml Neb Soln) 3 ml NEB Q6HRRT [facility] Last Admin: 05/25/21 12:05 Dose: 3 ml Documented by: Azathioprine (Azathioprine 50 Mg Tab) 100 mg PO DAILY [facility] Last Admin: 05/25/21 08:01 Dose: 100 mg Documented by: Benzonatate (Benzonatate 100 Mg Cap) 100 mg PO Q6H PRN PRN Reason: Cough Last Admin: 05/22/21 21:43 Dose: 100 mg Documented by: Calcium Carbonate/Glycine (Calcium Carbonate 500 Mg Tab.Chew) 500 mg PO DAILY [facility] Last Admin: 05/25/21 08:03 Dose: 500 mg Documented by: Docusate Sodium (Docusate Sodium 100 Mg Cap) 100 mg PO DAILY PRN PRN Reason: Constipation Last Admin: 05/23/21 04:34 Dose: 100 mg Documented by: Gabapentin (Gabapentin 100 Mg Cap) 100 mg PO DAILY [facility] Last Admin: 05/25/21 08:02 Dose: 100 mg Documented by: Heparin Sodium (Porcine) (Heparin Sodium 5,000 Units/Ml Vial) 5,000 units SUBCUT Q8H [facility] Last Admin: 05/25/21 08:05 Dose: 5,000 units Documented by: Pantoprazole Sodium 40 mg/ (Sodium Chloride) 10 mls @ 300 mls/hr IV DAILY [facility] Last Admin: 05/25/21 08:05 Dose: 300 mls/hr Documented by: Ibuprofen (Ibuprofen 200 Mg Tab) 200 mg PO Q6H PRN PRN Reason: Pain (moderate 4-6) Multivitamins/Minerals/Vitamin C (Multivitamin Tab) 1 tab PO DAILY [facility] Last Admin: 05/25/21 08:02 Dose: 1 tab Documented by: Ondansetron HCl (Ondansetron 4 Mg/2 Ml Sdv) 4 mg IVPUSH Q4H PRN PRN Reason: Nausea/Vomiting Polyethylene Glycol (Polyethylene Glycol 3350 Powder 17 Gm Packet) 17 gm PO DAILY [facility] Last Admin: 05/25/21 08:05 Dose: 17 gm Documented by: Simvastatin (Simvastatin 40 Mg Tab) 40 mg PO BEDTIME [facility] Last Admin: 05/24/21 20:14 Dose: 40 mg Documented by: Discontinued Medications Albuterol/Ipratropium (Albuterol/Ipratropium 3.0-0.5 Mg/3 Ml Neb Soln) 3 ml NEB Q4HRRT PRN PRN Reason: Shortness Of Breath/wheezing Last Admin: 05/24/21 00:37 Dose: 3 ml Documented by: Amlodipine Besylate (Amlodipine 5 Mg Tab) 5 mg PO DAILY [facility] Last Admin: 05/25/21 08:24 Dose: Not Given Documented by: Bisacodyl (Bisacodyl 10 Mg Supp) 10 mg RECTAL ONETIME ONE Stop: 05/24/21 06:58 Last Admin: 05/24/21 08:46 Dose: 10 mg Documented by: Furosemide (Furosemide 40 Mg/4 Ml Vial) 40 mg IVPUSH BID [facility] Last Admin: 05/25/21 08:05 Dose: 40 mg Documented by: Furosemide (Furosemide 20 Mg/2 Ml Vial) 20 mg IVPUSH NOW ONE Stop: 05/20/21 17:01 Last Admin: 05/20/21 17:52 Dose: 20 mg Documented by: Potassium Chloride (Potassium Chloride 20 Meq Tab.Er) 60 meq PO ONETIME ONE Stop: 05/21/21 09:40 Last Admin: 05/21/21 10:28 Dose: 60 meq Documented by: Potassium Chloride (Potassium Chloride 20 Meq Tab.Er) 40 meq PO ONETIME ONE Stop: 05/22/21 12:06 Last Admin: 05/22/21 13:04 Dose: 40 meq Documented by: - Exam General: Alert, Moderate Distress Neck: Supple Lungs: Clear to Auscultation, Normal Respiratory Effort Cardiovascular: Regular Rate, Regular Rhythm GI/Abdominal Exam: Soft, Non-Tender, No Distention Extremities: Non-Tender, No Pedal Edema Skin: Warm, Dry, Intact Neurological: No New Focal Deficit - Patient Data Lab Results Last 24 hrs: Laboratory Results - last 24 hr 05/25/21 05/25/21 Range/Units 05:25 05:25 WBC 8.26 (4.0-11.0) K/uL RBC 3.97 L (4.30-5.90) M/uL Hgb 11.4 L (12.0-16.0) g/dL Hct 34.3 L (36.0-46.0) % MCV 86.4 (80.0-98.0) fL MCH 28.7 (27.0-32.0) pg MCHC 33.2 (31.0-37.0) g/dL RDW Std Deviation 49.9 (28.0-62.0) fl RDW Coeff of Mili 16 H (11.0-15.0) % Plt Count 367 (150-400) K/uL MPV 9.70 (7.40-12.00) fL Neut % (Auto) 82.6 H (48.0-80.0) % Lymph % (Auto) 8.4 L (16.0-40.0) % Perry % (Auto) 8.8 (0.0-15.0) % Eos % (Auto) 0.0 (0.0-7.0) % Baso % (Auto) 0.2 (0.0-1.5) % Neut # (Auto) 6.8 H (1.4-5.7) K/uL Lymph # (Auto) 0.7 (0.6-2.4) K/uL Perry # (Auto) 0.7 (0.0-0.8) K/uL Eos # (Auto) 0.0 (0.0-0.7) K/uL Baso # (Auto) 0.0 (0.0-0.1) K/uL Nucleated RBC % 0.0 /100WBC Nucleated RBCs # 0 K/uL Sodium 137 (136-145) mmol/L Potassium 4.4 (3.5-5.1) mmol/L Chloride 97 L (98-107) mmol/L Carbon Dioxide 37.1 H (21.0-32.0) mmol/L BUN 29 H (7.0-18.0) mg/dL Creatinine 1.2 H (0.6-1.0) mg/dL Est Cr Clr Drug Dosing 28.35 mL/min Estimated GFR (MDRD) 42.7 ml/min Glucose 111 H (74-106) mg/dL Calcium 8.3 L (8.5-10.1) mg/dL Magnesium 1.9 (1.8-2.4) mg/dL Result Diagrams: 05/25/21 05:25 05/25/21 05:25 Sepsis Event Note - Evaluation Sepsis Screening Result: No Definite Risk - Focused Exam Vital Signs: Vital Signs Temp Pulse Resp BP BP Pulse Ox 05/25/21 12:04 37.0 C 88 22 H 94/51 L 92 L 05/25/21 08:24 103/51 L 05/25/21 07:48 36.3 C 86 20 103/51 L 96 05/25/21 04:00 36.4 C 86 19 99/53 L 93 L - Problem List & Annotations (1) CKD (chronic kidney disease) SNOMED Code(s): 958451100 Code(s): N18.9 - CHRONIC KIDNEY DISEASE, UNSPECIFIED Status: Acute Current Visit: Yes (2) Fluid overload SNOMED Code(s): 71327318 Code(s): E87.70 - FLUID OVERLOAD, UNSPECIFIED Status: Acute Current Visit: Yes - Problem List Review Problem List Initiated/Reviewed/Updated: Yes - My Orders Last 24 Hours: My Active Orders 05/24/21 12:00 Albuterol/Ipratropium [DuoNeb 3.0-0.5 MG/3 ML] 3 ml NEB Q6HRRT 05/25/21 12:23 CXR [Chest 1V Frontal] [CR] Routine 05/25/21 12:26 Chest PE [Ang Chest] [CT] Routine 05/25/21 12:28 COVID-19/FLU A+B/RSV [MOLEC] Routine 05/26/21 05:11 BASIC METABOLIC PANEL,BMP [CHEM] AM CBC WITH AUTO DIFF [HEME] AM - Plan Plan:: 86 yo female admitted for new onset CHF Hypoxia: on 4 L NC, will check CT chest CHF: blood pressure on low side will hold on further lasix and home medication of amlodipine 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
--- NOTE | 2021-05-25 14:02 | CT ---
Indication: Hypoxia Technique: Contrast-enhanced CT PE Comparison: No comparison Findings: Normal caliber thoracic aorta no pulmonary emboli. Heart size is normal. No pericardial effusion diffuse ground-glass airspace opacities throughout both lungs. No effusion. No central endobronchial lesion. No suspicious bony lesions. Impression: 1. No pulmonary emboli. 2. Diffuse airspace ground-glass opacities throughout both lungs. Please note that all CT scans at this facility use dose modulation, iterative reconstruction, and/or weight-based dosing when appropriate to reduce radiation dose to as low as reasonably achievable. Dictated by Eula Jo MD @ 05/25/2021 2:01:52 PM (Electronically Signed)
[2021-05-25] MEDS ORDERED: Iopamidol 755 MG/ML 500 ML Multipack Bottle IVPUSH ONE (14:59)
[2021-05-25 18:19] LABS: CORONAVIRUS COVID-19 NAA NEGATIVE (NEGATIVE); INFLUENZA A NAA NEGATIVE (NEGATIVE); INFLUENZA B NAA NEGATIVE (NEGATIVE); RESPIRATORY SYNCYTIAL VIR NAA NEGATIVE (NEGATIVE)
[2021-05-25] MEDS: Simvastatin 40 MG Tab PO SCH (20:50)
[2021-05-25] MEDS: Benzonatate 100 MG Cap PO PRN (20:50)
[2021-05-26] MEDS: Albuterol/Ipratropium 3.0-0.5 MG/3 ML Neb Soln NEB SCH ×4 (00:27→17:02)
[2021-05-26] MEDS: Heparin Sodium 5,000 Units/ML Vial SUBCUT SCH ×3 (00:27→16:38)
[2021-05-26 06:28] LABS: CARBON DIOXIDE,CO2 35.3 mmol/L (21.0-32.0); POTASSIUM,K 4.5 mmol/L (3.5-5.1)
[2021-05-26] MEDS: Multivitamin Tab PO SCH (09:56)
[2021-05-26] MEDS: Gabapentin 100 MG Cap PO SCH (09:56)
[2021-05-26] MEDS: Calcium Carbonate 500 MG Tab.Chew PO SCH (09:56)
[2021-05-26] MEDS: Pantoprazole 40 MG in Sodium Chloride 0.9% 10 ML IV SCH (09:57)
[2021-05-26] MEDS: Polyethylene Glycol 3350 Powder 17 GM Packet PO SCH (09:57)
--- NOTE | 2021-05-26 09:57 | PCM.PN ---
- General Info Date of Service: 05/26/21 - Review of Systems Systems Review Comment:: reports generalized weakness, and shortness of breath - Patient Data Vitals - Most Recent: Last Vital Signs Temp 36.6 C 05/26/21 04:46 Pulse 87 05/26/21 04:46 Resp 19 05/26/21 04:46 BP 114/63 05/26/21 04:46 Pulse Ox 92 L 05/26/21 04:46 Weight - Most Recent: 69.672 kg I&O - Last 24 Hours: Intake & Output 05/25/21 05/26/21 05/26/21 22:59 06:59 14:59 Intake Total 800 400 Output Total 500 750 Balance 300 -350 Lab Results Last 24 Hours: Laboratory Results - last 24 hr 05/25/21 05/26/21 05/26/21 Range/Units 17:00 05:49 05:49 WBC 7.71 (4.0-11.0) K/uL RBC 3.96 L (4.30-5.90) M/uL Hgb 11.1 L (12.0-16.0) g/dL Hct 34.3 L (36.0-46.0) % MCV 86.6 (80.0-98.0) fL MCH 28.0 (27.0-32.0) pg MCHC 32.4 (31.0-37.0) g/dL RDW Std Deviation 50.1 (28.0-62.0) fl RDW Coeff of Mili 16 H (11.0-15.0) % Plt Count 385 (150-400) K/uL MPV 9.20 (7.40-12.00) fL Neut % (Auto) 81.9 H (48.0-80.0) % Lymph % (Auto) 5.8 L (16.0-40.0) % [place] % (Auto) 12.2 (0.0-15.0) % Eos % (Auto) 0.0 (0.0-7.0) % Baso % (Auto) 0.1 (0.0-1.5) % Neut # (Auto) 6.3 H (1.4-5.7) K/uL Lymph # (Auto) 0.5 L (0.6-2.4) K/uL [place] # (Auto) 0.9 H (0.0-0.8) K/uL Eos # (Auto) 0.0 (0.0-0.7) K/uL Baso # (Auto) 0.0 (0.0-0.1) K/uL Nucleated RBC % 0.0 /100WBC Nucleated RBCs # 0 K/uL Sodium 135 L (136-145) mmol/L Potassium 4.5 (3.5-5.1) mmol/L Chloride 95 L (98-107) mmol/L Carbon Dioxide 35.3 H (21.0-32.0) mmol/L BUN 26 H (7.0-18.0) mg/dL Creatinine 1.1 H (0.6-1.0) mg/dL Est Cr Clr Drug Dosing 30.93 mL/min Estimated GFR (MDRD) 47.2 ml/min Glucose 114 H (74-106) mg/dL Calcium 8.3 L (8.5-10.1) mg/dL Influenza Type A RNA NEGATIVE (NEGATIVE) RSV RNA (INAAT) NEGATIVE (NEGATIVE) Influenza Type B RNA NEGATIVE (NEGATIVE) SARS-CoV-2 RNA (FARIBA) NEGATIVE (NEGATIVE) Med Orders - Current: Current Medications Acetaminophen (Acetaminophen 325 Mg Tab) 650 mg PO Q4H PRN PRN Reason: Pain (Mild 1-3)/fever Albuterol/Ipratropium (Albuterol/Ipratropium 3.0-0.5 Mg/3 Ml Neb Soln) 3 ml NEB Q6HRRT [facility] Last Admin: 05/26/21 06:57 Dose: 3 ml Documented by: Azathioprine (Azathioprine 50 Mg Tab) 100 mg PO DAILY [facility] Last Admin: 05/25/21 08:01 Dose: 100 mg Documented by: Benzonatate (Benzonatate 100 Mg Cap) 100 mg PO Q6H PRN PRN Reason: Cough Last Admin: 05/25/21 20:50 Dose: 100 mg Documented by: Calcium Carbonate/Glycine (Calcium Carbonate 500 Mg Tab.Chew) 500 mg PO DAILY [facility] Last Admin: 05/25/21 08:03 Dose: 500 mg Documented by: Docusate Sodium (Docusate Sodium 100 Mg Cap) 100 mg PO DAILY PRN PRN Reason: Constipation Last Admin: 05/23/21 04:34 Dose: 100 mg Documented by: Gabapentin (Gabapentin 100 Mg Cap) 100 mg PO DAILY [facility] Last Admin: 05/25/21 08:02 Dose: 100 mg Documented by: Heparin Sodium (Porcine) (Heparin Sodium 5,000 Units/Ml Vial) 5,000 units SUBCUT Q8H [facility] Last Admin: 05/26/21 00:27 Dose: 5,000 units Documented by: Pantoprazole Sodium 40 mg/ (Sodium Chloride) 10 mls @ 300 mls/hr IV DAILY [facility] Last Admin: 05/25/21 08:05 Dose: 300 mls/hr Documented by: Ibuprofen (Ibuprofen 200 Mg Tab) 200 mg PO Q6H PRN PRN Reason: Pain (moderate 4-6) Multivitamins/Minerals/Vitamin C (Multivitamin Tab) 1 tab PO DAILY [facility] Last Admin: 05/25/21 08:02 Dose: 1 tab Documented by: Ondansetron HCl (Ondansetron 4 Mg/2 Ml Sdv) 4 mg IVPUSH Q4H PRN PRN Reason: Nausea/Vomiting Polyethylene Glycol (Polyethylene Glycol 3350 Powder 17 Gm Packet) 17 gm PO DAILY [facility] Last Admin: 05/25/21 08:05 Dose: 17 gm Documented by: Simvastatin (Simvastatin 40 Mg Tab) 40 mg PO BEDTIME [facility] Last Admin: 05/25/21 20:50 Dose: 40 mg Documented by: Discontinued Medications Albuterol/Ipratropium (Albuterol/Ipratropium 3.0-0.5 Mg/3 Ml Neb Soln) 3 ml NEB Q4HRRT PRN PRN Reason: Shortness Of Breath/wheezing Last Admin: 05/24/21 00:37 Dose: 3 ml Documented by: Amlodipine Besylate (Amlodipine 5 Mg Tab) 5 mg PO DAILY [facility] Last Admin: 05/25/21 08:24 Dose: Not Given Documented by: Bisacodyl (Bisacodyl 10 Mg Supp) 10 mg RECTAL ONETIME ONE Stop: 05/24/21 06:58 Last Admin: 05/24/21 08:46 Dose: 10 mg Documented by: Furosemide (Furosemide 40 Mg/4 Ml Vial) 40 mg IVPUSH BID [facility] Last Admin: 05/25/21 08:05 Dose: 40 mg Documented by: Furosemide (Furosemide 20 Mg/2 Ml Vial) 20 mg IVPUSH NOW ONE Stop: 05/20/21 17:01 Last Admin: 05/20/21 17:52 Dose: 20 mg Documented by: Iopamidol (Iopamidol 755 Mg/Ml 500 Ml Multipack Bottle) 100 ml IVPUSH ONETIME ONE Stop: 05/25/21 15:00 Last Admin: 05/25/21 15:00 Dose: 100 ml Documented by: Potassium Chloride (Potassium Chloride 20 Meq Tab.Er) 60 meq PO ONETIME ONE Stop: 05/21/21 09:40 Last Admin: 05/21/21 10:28 Dose: 60 meq Documented by: Potassium Chloride (Potassium Chloride 20 Meq Tab.Er) 40 meq PO ONETIME ONE Stop: 05/22/21 12:06 Last Admin: 05/22/21 13:04 Dose: 40 meq Documented by: - Exam General: Alert, Oriented Neck: Supple Lungs: Clear to Auscultation, Normal Respiratory Effort GI/Abdominal Exam: Soft, Non-Tender, No Distention Extremities: Non-Tender, No Pedal Edema Skin: Warm, Dry, Intact Neurological: No New Focal Deficit - Patient Data Lab Results Last 24 hrs: Laboratory Results - last 24 hr 05/25/21 05/26/21 05/26/21 Range/Units 17:00 05:49 05:49 WBC 7.71 (4.0-11.0) K/uL RBC 3.96 L (4.30-5.90) M/uL Hgb 11.1 L (12.0-16.0) g/dL Hct 34.3 L (36.0-46.0) % MCV 86.6 (80.0-98.0) fL MCH 28.0 (27.0-32.0) pg MCHC 32.4 (31.0-37.0) g/dL RDW Std Deviation 50.1 (28.0-62.0) fl RDW Coeff of Mili 16 H (11.0-15.0) % Plt Count 385 (150-400) K/uL MPV 9.20 (7.40-12.00) fL Neut % (Auto) 81.9 H (48.0-80.0) % Lymph % (Auto) 5.8 L (16.0-40.0) % [place] % (Auto) 12.2 (0.0-15.0) % Eos % (Auto) 0.0 (0.0-7.0) % Baso % (Auto) 0.1 (0.0-1.5) % Neut # (Auto) 6.3 H (1.4-5.7) K/uL Lymph # (Auto) 0.5 L (0.6-2.4) K/uL [place] # (Auto) 0.9 H (0.0-0.8) K/uL Eos # (Auto) 0.0 (0.0-0.7) K/uL Baso # (Auto) 0.0 (0.0-0.1) K/uL Nucleated RBC % 0.0 /100WBC Nucleated RBCs # 0 K/uL Sodium 135 L (136-145) mmol/L Potassium 4.5 (3.5-5.1) mmol/L Chloride 95 L (98-107) mmol/L Carbon Dioxide 35.3 H (21.0-32.0) mmol/L BUN 26 H (7.0-18.0) mg/dL Creatinine 1.1 H (0.6-1.0) mg/dL Est Cr Clr Drug Dosing 30.93 mL/min Estimated GFR (MDRD) 47.2 ml/min Glucose 114 H (74-106) mg/dL Calcium 8.3 L (8.5-10.1) mg/dL Influenza Type A RNA NEGATIVE (NEGATIVE) RSV RNA (INAAT) NEGATIVE (NEGATIVE) Influenza Type B RNA NEGATIVE (NEGATIVE) SARS-CoV-2 RNA (FARIBA) NEGATIVE (NEGATIVE) Result Diagrams: 05/26/21 05:49 05/26/21 05:49 Sepsis Event Note - Evaluation Sepsis Screening Result: No Definite Risk - Focused Exam Vital Signs: Vital Signs Temp Pulse Resp BP Pulse Ox 05/26/21 04:46 36.6 C 87 19 114/63 92 L 05/26/21 00:29 36.6 C 85 20 110/63 95 - Problem List & Annotations (1) CKD (chronic kidney disease) SNOMED Code(s): 950776608 Code(s): N18.9 - CHRONIC KIDNEY DISEASE, UNSPECIFIED Status: Acute Current Visit: Yes (2) Fluid overload SNOMED Code(s): 83576770 Code(s): E87.70 - FLUID OVERLOAD, UNSPECIFIED Status: Acute Current Visit: Yes - Problem List Review Problem List Initiated/Reviewed/Updated: Yes - My Orders Last 24 Hours: My Active Orders 05/26/21 08:47 Obtain Past Medical Record [OM.PC] Routine 05/26/21 10:00 Furosemide [Lasix] 40 mg PO DAILY - Plan Plan:: 86 yo female admitted for new onset CHF Hypoxia: on 4 L NC, CT chest shows bilateral ground glass opacitie CHF: continue diuresis with lasix, will get past medical records from family doctor. 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
[2021-05-26] MEDS: Furosemide 40 MG Tab PO SCH (10:29)
[2021-05-26] MEDS: Simvastatin 40 MG Tab PO SCH (20:46)
[2021-05-26] MEDS: Benzonatate 100 MG Cap PO PRN (20:46)
[2021-05-27] MEDS: Albuterol/Ipratropium 3.0-0.5 MG/3 ML Neb Soln NEB SCH ×4 (00:02→17:05)
[2021-05-27] MEDS: Heparin Sodium 5,000 Units/ML Vial SUBCUT SCH ×3 (00:07→16:48)
[2021-05-27 06:57] LABS: CARBON DIOXIDE,CO2 34.8 mmol/L (21.0-32.0); POTASSIUM,K 4.4 mmol/L (3.5-5.1)
[2021-05-27] MEDS: Pantoprazole 40 MG in Sodium Chloride 0.9% 10 ML IV SCH (08:53)
[2021-05-27] MEDS: Multivitamin Tab PO SCH (08:54)
[2021-05-27] MEDS: Calcium Carbonate 500 MG Tab.Chew PO SCH (08:54)
[2021-05-27] MEDS: Gabapentin 100 MG Cap PO SCH (08:54)
[2021-05-27] MEDS: Furosemide 40 MG Tab PO SCH (08:54)
[2021-05-27] MEDS: Polyethylene Glycol 3350 Powder 17 GM Packet PO SCH (08:54)
[2021-05-27] MEDS: Levofloxacin/Dextrose 5%-Water 750 MG in Premix Bag 1 BAG IV SCH (10:20)
--- NOTE | 2021-05-27 11:36 | PCM.PN ---
- General Info Date of Service: 05/27/21 Subjective Update: The patient is an 86-year-old female, on day 8 of service, with a significant past medical history of idiopathic interstitial lung disease, diabetes mellitus, hyperlipidemia, hypertension, and autoimmune renal disease, who was admitted to the medical floor due to congestive heart failure. Upon interview with the patient today she admits that her shortness of breath has significantly decreased, but she continues to have cough productive of yellow-gr een sputum and nasal discharge which is same in color which has been going on for the past 12 hours. She also feels weak but denies fever, chills, nausea, vomiting, chest pain, palpitations, and any issues with urination and/or defecation. The patient is a direct admit from [place], [place]. Her PCP Dr. Aparicio was contacted today but could not be reached, instead his nurse Beatriz Ovalles revealed information about the patient including that on May 08 of this year, she had a chest x-ray done which revealed patchy opacities of both lungs, interstitial lung disease, cardiomegaly, osteopenia, and aortic calcifications. Back in 2019 the patient saw a engineering supplies sales who diagnosed idiopathic interstitial lung disease. Also in 2019 the patient also saw a fast food assistant restaurant manager, Dr. Hannon, who diagnosed autoimmune renal disease after a kidney needle biopsy was sent to [place] and returned. It was then that the patient was started on azathioprine. Due to the patient's new onset sputum production and nasal discharge we will start her on antibiotics, and continue treatment for her CHF. - Review of Systems General: Reports: Weakness, Fatigue. Denies: Fever, Chills HEENT: Reports: Rhinitis. Denies: Headaches, Sore Throat Pulmonary: Reports: Shortness of Breath, Cough, Sputum Cardiovascular: Denies: Chest Pain, Palpitations Gastrointestinal: Denies: Abdominal Pain Genitourinary: Denies: Dysuria - Patient Data Vitals - Most Recent: Last Vital Signs Temp 97.4 F 05/27/21 08:00 Pulse 83 05/27/21 08:00 Resp 24 H 05/27/21 08:00 BP 116/60 05/27/21 08:00 Pulse Ox 93 L 05/27/21 08:00 Weight - Most Recent: 153 lb 6.4 oz I&O - Last 24 Hours: Intake & Output 05/26/21 05/27/21 05/27/21 22:59 06:59 14:59 Intake Total 800 450 Output Total 600 700 Balance 200 -250 Lab Results Last 24 Hours: Laboratory Results - last 24 hr 05/27/21 05/27/21 Range/Units 05:46 05:46 WBC 7.30 (4.0-11.0) K/uL RBC 3.81 L (4.30-5.90) M/uL Hgb 10.5 L (12.0-16.0) g/dL Hct 33.4 L (36.0-46.0) % MCV 87.7 (80.0-98.0) fL MCH 27.6 (27.0-32.0) pg MCHC 31.4 (31.0-37.0) g/dL RDW Std Deviation 50.8 (28.0-62.0) fl RDW Coeff of Mili 16 H (11.0-15.0) % Plt Count 405 H (150-400) K/uL MPV 9.30 (7.40-12.00) fL Neut % (Auto) 80.7 H (48.0-80.0) % Lymph % (Auto) 8.5 L (16.0-40.0) % [place] % (Auto) 10.4 (0.0-15.0) % Eos % (Auto) 0.3 (0.0-7.0) % Baso % (Auto) 0.1 (0.0-1.5) % Neut # (Auto) 5.9 H (1.4-5.7) K/uL Lymph # (Auto) 0.6 (0.6-2.4) K/uL [place] # (Auto) 0.8 (0.0-0.8) K/uL Eos # (Auto) 0.0 (0.0-0.7) K/uL Baso # (Auto) 0.0 (0.0-0.1) K/uL Nucleated RBC % 0.0 /100WBC Nucleated RBCs # 0 K/uL Sodium 137 (136-145) mmol/L Potassium 4.4 (3.5-5.1) mmol/L Chloride 98 (98-107) mmol/L Carbon Dioxide 34.8 H (21.0-32.0) mmol/L BUN 18 (7.0-18.0) mg/dL Creatinine 0.9 (0.6-1.0) mg/dL Est Cr Clr Drug Dosing 37.80 mL/min Estimated GFR (MDRD) 59.5 ml/min Glucose 108 H (74-106) mg/dL Calcium 8.2 L (8.5-10.1) mg/dL Total Bilirubin 0.3 (0.2-1.0) mg/dL AST 28 (15-37) IU/L ALT 42 (14-63) IU/L Alkaline Phosphatase 53 (46-116) U/L Total Protein 5.3 L (6.4-8.2) g/dL Albumin 1.8 L (3.4-5.0) g/dL Globulin 3.5 (2.6-4.0) g/dL Albumin/Globulin Ratio 0.5 L (0.9-1.6) Med Orders - Current: Current Medications Acetaminophen (Acetaminophen 325 Mg Tab) 650 mg PO Q4H PRN PRN Reason: Pain (Mild 1-3)/fever Albuterol/Ipratropium (Albuterol/Ipratropium 3.0-0.5 Mg/3 Ml Neb Soln) 3 ml NEB Q6HRRT [facility] Last Admin: 05/27/21 11:19 Dose: 3 ml Documented by: Azathioprine (Azathioprine 50 Mg Tab) 100 mg PO DAILY [facility] Last Admin: 05/27/21 08:54 Dose: 100 mg Documented by: Benzonatate (Benzonatate 100 Mg Cap) 100 mg PO Q6H PRN PRN Reason: Cough Last Admin: 05/26/21 20:46 Dose: 100 mg Documented by: Calcium Carbonate/Glycine (Calcium Carbonate 500 Mg Tab.Chew) 500 mg PO DAILY [facility] Last Admin: 05/27/21 08:54 Dose: 500 mg Documented by: Docusate Sodium (Docusate Sodium 100 Mg Cap) 100 mg PO DAILY PRN PRN Reason: Constipation Last Admin: 05/23/21 04:34 Dose: 100 mg Documented by: Furosemide (Furosemide 40 Mg Tab) 40 mg PO DAILY [facility] Last Admin: 05/27/21 08:54 Dose: 40 mg Documented by: Gabapentin (Gabapentin 100 Mg Cap) 100 mg PO DAILY [facility] Last Admin: 05/27/21 08:54 Dose: 100 mg Documented by: Heparin Sodium (Porcine) (Heparin Sodium 5,000 Units/Ml Vial) 5,000 units SUBCUT Q8H [facility] Last Admin: 05/27/21 08:53 Dose: 5,000 units Documented by: Pantoprazole Sodium 40 mg/ (Sodium Chloride) 10 mls @ 300 mls/hr IV DAILY [facility] Last Admin: 05/27/21 08:53 Dose: 300 mls/hr Documented by: Levofloxacin/Dextrose 750 mg/ (Premix) 150 mls @ 100 mls/hr IV Q48H [facility] Last Admin: 05/27/21 10:20 Dose: 100 mls/hr Documented by: Ibuprofen (Ibuprofen 200 Mg Tab) 200 mg PO Q6H PRN PRN Reason: Pain (moderate 4-6) Multivitamins/Minerals/Vitamin C (Multivitamin Tab) 1 tab PO DAILY [facility] Last Admin: 05/27/21 08:54 Dose: 1 tab Documented by: Ondansetron HCl (Ondansetron 4 Mg/2 Ml Sdv) 4 mg IVPUSH Q4H PRN PRN Reason: Nausea/Vomiting Polyethylene Glycol (Polyethylene Glycol 3350 Powder 17 Gm Packet) 17 gm PO DAILY [facility] Last Admin: 05/27/21 08:54 Dose: 17 gm Documented by: Simvastatin (Simvastatin 40 Mg Tab) 40 mg PO BEDTIME [facility] Last Admin: 05/26/21 20:46 Dose: 40 mg Documented by: Discontinued Medications Albuterol/Ipratropium (Albuterol/Ipratropium 3.0-0.5 Mg/3 Ml Neb Soln) 3 ml NEB Q4HRRT PRN PRN Reason: Shortness Of Breath/wheezing Last Admin: 05/24/21 00:37 Dose: 3 ml Documented by: Amlodipine Besylate (Amlodipine 5 Mg Tab) 5 mg PO DAILY [facility] Last Admin: 05/25/21 08:24 Dose: Not Given Documented by: Bisacodyl (Bisacodyl 10 Mg Supp) 10 mg RECTAL ONETIME ONE Stop: 05/24/21 06:58 Last Admin: 05/24/21 08:46 Dose: 10 mg Documented by: Furosemide (Furosemide 40 Mg/4 Ml Vial) 40 mg IVPUSH BID [facility] Last Admin: 05/25/21 08:05 Dose: 40 mg Documented by: Furosemide (Furosemide 20 Mg/2 Ml Vial) 20 mg IVPUSH NOW ONE Stop: 05/20/21 17:01 Last Admin: 05/20/21 17:52 Dose: 20 mg Documented by: Iopamidol (Iopamidol 755 Mg/Ml 500 Ml Multipack Bottle) 100 ml IVPUSH ONETIME ONE Stop: 05/25/21 15:00 Last Admin: 05/25/21 15:00 Dose: 100 ml Documented by: Potassium Chloride (Potassium Chloride 20 Meq Tab.Er) 60 meq PO ONETIME ONE Stop: 05/21/21 09:40 Last Admin: 05/21/21 10:28 Dose: 60 meq Documented by: Potassium Chloride (Potassium Chloride 20 Meq Tab.Er) 40 meq PO ONETIME ONE Stop: 05/22/21 12:06 Last Admin: 05/22/21 13:04 Dose: 40 meq Documented by: - Exam General: Alert, Oriented, Cooperative HEENT: Mucous Membr. Moist/[employer] Neck: Trachea Midline. No: Lymphadenopathy Lungs: Rhonchi Cardiovascular: Regular Rate, Regular Rhythm GI/Abdominal Exam: Normal Bowel Sounds, Soft, Non-Tender Extremities: No Pedal Edema - Patient Data Lab Results Last 24 hrs: Laboratory Results - last 24 hr 05/27/21 05/27/21 Range/Units 05:46 05:46 WBC 7.30 (4.0-11.0) K/uL RBC 3.81 L (4.30-5.90) M/uL Hgb 10.5 L (12.0-16.0) g/dL Hct 33.4 L (36.0-46.0) % MCV 87.7 (80.0-98.0) fL MCH 27.6 (27.0-32.0) pg MCHC 31.4 (31.0-37.0) g/dL RDW Std Deviation 50.8 (28.0-62.0) fl RDW Coeff of Mili 16 H (11.0-15.0) % Plt Count 405 H (150-400) K/uL MPV 9.30 (7.40-12.00) fL Neut % (Auto) 80.7 H (48.0-80.0) % Lymph % (Auto) 8.5 L (16.0-40.0) % [place] % (Auto) 10.4 (0.0-15.0) % Eos % (Auto) 0.3 (0.0-7.0) % Baso % (Auto) 0.1 (0.0-1.5) % Neut # (Auto) 5.9 H (1.4-5.7) K/uL Lymph # (Auto) 0.6 (0.6-2.4) K/uL [place] # (Auto) 0.8 (0.0-0.8) K/uL Eos # (Auto) 0.0 (0.0-0.7) K/uL Baso # (Auto) 0.0 (0.0-0.1) K/uL Nucleated RBC % 0.0 /100WBC Nucleated RBCs # 0 K/uL Sodium 137 (136-145) mmol/L Potassium 4.4 (3.5-5.1) mmol/L Chloride 98 (98-107) mmol/L Carbon Dioxide 34.8 H (21.0-32.0) mmol/L BUN 18 (7.0-18.0) mg/dL Creatinine 0.9 (0.6-1.0) mg/dL Est Cr Clr Drug Dosing 37.80 mL/min Estimated GFR (MDRD) 59.5 ml/min Glucose 108 H (74-106) mg/dL Calcium 8.2 L (8.5-10.1) mg/dL Total Bilirubin 0.3 (0.2-1.0) mg/dL AST 28 (15-37) IU/L ALT 42 (14-63) IU/L Alkaline Phosphatase 53 (46-116) U/L Total Protein 5.3 L (6.4-8.2) g/dL Albumin 1.8 L (3.4-5.0) g/dL Globulin 3.5 (2.6-4.0) g/dL Albumin/Globulin Ratio 0.5 L (0.9-1.6) Result Diagrams: 05/27/21 05:46 05/27/21 05:46 Sepsis Event Note - Evaluation Sepsis Screening Result: No Definite Risk - Focused Exam Vital Signs: Vital Signs Temp Pulse Resp BP Pulse Ox 05/27/21 08:00 97.4 F 83 24 H 116/60 93 L 05/27/21 04:07 97.4 F 80 18 102/54 L 95 05/27/21 00:05 97.3 F 85 20 115/57 L 94 L - Problem List & Annotations (1) CKD (chronic kidney disease) SNOMED Code(s): 316718165 Code(s): N18.9 - CHRONIC KIDNEY DISEASE, UNSPECIFIED Status: Acute Curr ent Visit: Yes (2) Diabetes mellitus SNOMED Code(s): 16357895 Code(s): E11.9 - TYPE 2 DIABETES MELLITUS WITHOUT COMPLICATIONS Status: Acute Current Visit: Yes (3) Fluid overload SNOMED Code(s): 82969915 Code(s): E87.70 - FLUID OVERLOAD, UNSPECIFIED Status: Acute Current Visit: Yes (4) Hyperlipidemia SNOMED Code(s): 50208772 Code(s): E78.5 - HYPERLIPIDEMIA, UNSPECIFIED Status: Acute Current Visit: Yes (5) Hypertension SNOMED Code(s): 22443140 Code(s): I10 - ESSENTIAL (PRIMARY) HYPERTENSION Status: Acute Current Visit: Yes (6) CHF (congestive heart failure) SNOMED Code(s): 21038785 Code(s): I50.9 - HEART FAILURE, UNSPECIFIED Status: Acute Current Visit: No - Problem List Review Problem List Initiated/Reviewed/Updated: Yes - My Orders Last 24 Hours: My Active Orders 05/27/21 10:00 Levofloxacin/Dextrose 5%-Water [Levaquin in D5W 750 MG/150 ML] 750 mg Premix Bag 1 bag IV Q48H - Plan Plan:: 1. Congestive heart failure -Continue the patient's-on Lasix 40 mg per oral route once a day -Continue with oxygen supplementation as needed, currently the patient is on 4 L via nasal cannula -Continue with duo nebulizer treatment for shortness of breath 2. Pneumonia/URI -The patient has been started on Levaquin 750 mg per IV route every 24 hours -We will continue to monitor patient's clinical status and daily CBC/CMP 3. Autoimmune renal disease -The patient was diagnosed with this condition in 2019 by fast food assistant restaurant manager , after a needle biopsy came back from [facility] -Patient was started on azathioprine and we will continue with this medication 100 mg per oral route once a day, for 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 we will use heparin 5000 as it is renal protective 4. Interstitial lung disease -The patient had ground glass opacities seen on imaging here via CT as well as a chest x-ray in [place] on May 08 -She was diagnosed with this condition in 2018 by a engineering supplies sales and was started on Decadron, we will initiate this medication today 6 mg per oral route 5. Constipation -We will continue the patient on MiraLAX 17 g per oral route at bedtime 6. Hyperlipidemia -We will continue the patient on simvastatin 40 mg per oral route at bedtime 7. Diabetic neuropathy -We will continue the patient on gabapentin 100 mg per oral route once a day
[2021-05-27] MEDS: Dexamethasone 4 MG Tab PO SCH (12:08)
[2021-05-27] MEDS: Simvastatin 40 MG Tab PO SCH (20:31)
[2021-05-28] MEDS: Heparin Sodium 5,000 Units/ML Vial SUBCUT SCH ×3 (00:12→16:13)
[2021-05-28] MEDS: Albuterol/Ipratropium 3.0-0.5 MG/3 ML Neb Soln NEB SCH ×4 (00:12→17:12)
[2021-05-28 07:43] LABS: CARBON DIOXIDE,CO2 31.6 mmol/L (21.0-32.0); POTASSIUM,K 3.9 mmol/L (3.5-5.1)
[2021-05-28] MEDS: Gabapentin 100 MG Cap PO SCH (09:22)
[2021-05-28] MEDS: Furosemide 40 MG Tab PO SCH (09:23)
[2021-05-28] MEDS: Multivitamin Tab PO SCH (09:23)
[2021-05-28] MEDS: Calcium Carbonate 500 MG Tab.Chew PO SCH (09:23)
[2021-05-28] MEDS: Dexamethasone 4 MG Tab PO SCH (09:25)
[2021-05-28] MEDS: Polyethylene Glycol 3350 Powder 17 GM Packet PO SCH (09:29)
[2021-05-28] MEDS: Pantoprazole 40 MG in Sodium Chloride 0.9% 10 ML IV SCH (09:29)
--- NOTE | 2021-05-28 10:24 | PCM.PN ---
- General Info Date of Service: 05/28/21 Subjective Update: The patient is an 86-year-old female, on day 9 of service, with a significant past medical history of idiopathic interstitial lung disease, diabetes mellitus, hyperlipidemia, hypertension, and autoimmune renal disease, who was admitted to the medical floor due to congestive heart failure. The patient admits that her shortness of breath is better but she still has issues when she ambulates around her room. She admits that since starting steroids her symptoms have significantly improved. She is currently saturating 91% on 4 L of oxygen. She admits that she feels weak but that this has progressively improved since admission. She is eating and drinking her meals to completion without issues. She denies chest pain, palpitations, cough, nausea, vomiting, abdominal pain, and any problems with urination and/or defecation. She has no other a [facility] concerns at this time. - Review of Systems General: Reports: Weakness. Denies: Fever, Chills HEENT: Denies: Headaches, Sore Throat Pulmonary: Reports: Shortness of Breath. Denies: Cough Cardiovascular: Denies: Chest Pain, Palpitations Gastrointestinal: Denies: Abdominal Pain Genitourinary: Denies: Dysuria - Patient Data Vitals - Most Recent: Last Vital Signs Temp 97.3 F 05/28/21 07:00 Pulse 78 05/28/21 07:00 Resp 20 05/28/21 07:00 BP 118/57 L 05/28/21 07:00 Pulse Ox 91 L 05/28/21 07:00 Weight - Most Recent: 152 lb 3.2 oz I&O - Last 24 Hours: Intake & Output 05/27/21 05/28/21 05/28/21 22:59 06:59 14:59 Intake Total 1025 400 Output Total 950 400 Balance 75 0 Lab Results Last 24 Hours: Laboratory Results - last 24 hr 05/28/21 05/28/21 Range/Units 05:22 05:22 WBC 6.29 (4.0-11.0) K/uL RBC 3.89 L (4.30-5.90) M/uL Hgb 11.1 L (12.0-16.0) g/dL Hct 34.3 L (36.0-46.0) % MCV 88.2 (80.0-98.0) fL MCH 28.5 (27.0-32.0) pg MCHC 32.4 (31.0-37.0) g/dL RDW Std Deviation 50.8 (28.0-62.0) fl RDW Coeff of Mili 16 H (11.0-15.0) % Plt Count 452 H (150-400) K/uL MPV 10.00 (7.40-12.00) fL Neut % (Auto) 81.8 H (48.0-80.0) % Lymph % (Auto) 4.5 L (16.0-40.0) % Drew % (Auto) 13.5 (0.0-15.0) % Eos % (Auto) 0.0 (0.0-7.0) % Baso % (Auto) 0.2 (0.0-1.5) % Neut # (Auto) 5.2 (1.4-5.7) K/uL Lymph # (Auto) 0.3 L (0.6-2.4) K/uL Drew # (Auto) 0.9 H (0.0-0.8) K/uL Eos # (Auto) 0.0 (0.0-0.7) K/uL Baso # (Auto) 0.0 (0.0-0.1) K/uL Nucleated RBC % 0.0 /100WBC Nucleated RBCs # 0 K/uL Sodium 134 L (136-145) mmol/L Potassium 3.9 (3.5-5.1) mmol/L Chloride 98 (98-107) mmol/L Carbon Dioxide 31.6 (21.0-32.0) mmol/L BUN 17 (7.0-18.0) mg/dL Creatinine 1.0 (0.6-1.0) mg/dL Est Cr Clr Drug Dosing 34.02 mL/min Estimated GFR (MDRD) 52.7 ml/min Glucose 124 H (74-106) mg/dL Calcium 9.1 (8.5-10.1) mg/dL Total Bilirubin 0.2 (0.2-1.0) mg/dL AST 25 (15-37) IU/L ALT 42 (14-63) IU/L Alkaline Phosphatase 51 (46-116) U/L Total Protein 6.0 L (6.4-8.2) g/dL Albumin 1.9 L (3.4-5.0) g/dL Globulin 4.1 H (2.6-4.0) g/dL Albumin/Globulin Ratio 0.5 L (0.9-1.6) Med Orders - Current: Current Medications Acetaminophen (Acetaminophen 325 Mg Tab) 650 mg PO Q4H PRN PRN Reason: Pain (Mild 1-3)/fever Albuterol/Ipratropium (Albuterol/Ipratropium 3.0-0.5 Mg/3 Ml Neb Soln) 3 ml NEB Q6HRRT [facility] Last Admin: 05/28/21 06:11 Dose: 3 ml Documented by: Azathioprine (Azathioprine 50 Mg Tab) 100 mg PO DAILY [facility] Last Admin: 05/28/21 09:25 Dose: 100 mg Documented by: Benzonatate (Benzonatate 100 Mg Cap) 100 mg PO Q6H PRN PRN Reason: Cough Last Admin: 05/26/21 20:46 Dose: 100 mg Documented by: Calcium Carbonate/Glycine (Calcium Carbonate 500 Mg Tab.Chew) 500 mg PO DAILY [facility] Last Admin: 05/28/21 09:23 Dose: 500 mg Documented by: Dexamethasone (Dexamethasone 4 Mg Tab) 6 mg PO DAILY [facility] Last Admin: 05/28/21 09:25 Dose: 6 mg Documented by: Docusate Sodium (Docusate Sodium 100 Mg Cap) 100 mg PO DAILY PRN PRN Reason: Constipation Last Admin: 05/23/21 04:34 Dose: 100 mg Documented by: Furosemide (Furosemide 40 Mg Tab) 40 mg PO DAILY [facility] Last Admin: 05/28/21 09:23 Dose: 40 mg Documented by: Gabapentin (Gabapentin 100 Mg Cap) 100 mg PO DAILY [facility] Last Admin: 05/28/21 09:22 Dose: 100 mg Documented by: Heparin Sodium (Porcine) (Heparin Sodium 5,000 Units/Ml Vial) 5,000 units SUBCUT Q8H [facility] Last Admin: 05/28/21 09:30 Dose: 5,000 units Documented by: Pantoprazole Sodium 40 mg/ (Sodium Chloride) 10 mls @ 300 mls/hr IV DAILY [facility] Last Admin: 05/28/21 09:29 Dose: 300 mls/hr Documented by: Levofloxacin/Dextrose 750 mg/ (Premix) 150 mls @ 100 mls/hr IV Q48H [facility] Last Admin: 05/27/21 10:20 Dose: 100 mls/hr Documented by: Ibuprofen (Ibuprofen 200 Mg Tab) 200 mg PO Q6H PRN PRN Reason: Pain (moderate 4-6) Multivitamins/Minerals/Vitamin C (Multivitamin Tab) 1 tab PO DAILY [facility] Last Admin: 05/28/21 09:23 Dose: 1 tab Documented by: Ondansetron HCl (Ondansetron 4 Mg/2 Ml Sdv) 4 mg IVPUSH Q4H PRN PRN Reason: Nausea/Vomiting Polyethylene Glycol (Polyethylene Glycol 3350 Powder 17 Gm Packet) 17 gm PO DAILY [facility] Last Admin: 05/28/21 09:29 Dose: 17 gm Documented by: Simvastatin (Simvastatin 40 Mg Tab) 40 mg PO BEDTIME [facility] Last Admin: 05/27/21 20:31 Dose: 40 mg Documented by: Discontinued Medications Albuterol/Ipratropium (Albuterol/Ipratropium 3.0-0.5 Mg/3 Ml Neb Soln) 3 ml NEB Q4HRRT PRN PRN Reason: Shortness Of Breath/wheezing Last Admin: 05/24/21 00:37 Dose: 3 ml Documented by: Amlodipine Besylate (Amlodipine 5 Mg Tab) 5 mg PO DAILY [facility] Last Admin: 05/25/21 08:24 Dose: Not Given Documented by: Bisacodyl (Bisacodyl 10 Mg Supp) 10 mg RECTAL ONETIME ONE Stop: 05/24/21 06:58 Last Admin: 05/24/21 08:46 Dose: 10 mg Documented by: Furosemide (Furosemide 40 Mg/4 Ml Vial) 40 mg IVPUSH BID [facility] Last Admin: 05/25/21 08:05 Dose: 40 mg Documented by: Furosemide (Furosemide 20 Mg/2 Ml Vial) 20 mg IVPUSH NOW ONE Stop: 05/20/21 17:01 Last Admin: 05/20/21 17:52 Dose: 20 mg Documented by: Iopamidol (Iopamidol 755 Mg/Ml 500 Ml Multipack Bottle) 100 ml IVPUSH ONETIME ONE Stop: 05/25/21 15:00 Last Admin: 05/25/21 15:00 Dose: 100 ml Documented by: Potassium Chloride (Potassium Chloride 20 Meq Tab.Er) 60 meq PO ONETIME ONE Stop: 05/21/21 09:40 Last Admin: 05/21/21 10:28 Dose: 60 meq Documented by: Potassium Chloride (Potassium Chloride 20 Meq Tab.Er) 40 meq PO ONETIME ONE Stop: 05/22/21 12:06 Last Admin: 05/22/21 13:04 Dose: 40 meq Documented by: - Exam General: Alert, Oriented, Cooperative HEENT: Mucous Membr. Moist/[place] Neck: Trachea Midline Lungs: Wheezing Cardiovascular: Regular Rate, Regular Rhythm GI/Abdominal Exam: Normal Bowel Sounds, Soft, Non-Tender Extremities: No Pedal Edema - Patient Data Lab Results Last 24 hrs: Laboratory Results - last 24 hr 05/28/21 05/28/21 Range/Units 05:22 05:22 WBC 6.29 (4.0-11.0) K/uL RBC 3.89 L (4.30-5.90) M/uL Hgb 11.1 L (12.0-16.0) g/dL Hct 34.3 L (36.0-46.0) % MCV 88.2 (80.0-98.0) fL MCH 28.5 (27.0-32.0) pg MCHC 32.4 (31.0-37.0) g/dL RDW Std Deviation 50.8 (28.0-62.0) fl RDW Coeff of Mili 16 H (11.0-15.0) % Plt Count 452 H (150-400) K/uL MPV 10.00 (7.40-12.00) fL Neut % (Auto) 81.8 H (48.0-80.0) % Lymph % (Auto) 4.5 L (16.0-40.0) % Drew % (Auto) 13.5 (0.0-15.0) % Eos % (Auto) 0.0 (0.0-7.0) % Baso % (Auto) 0.2 (0.0-1.5) % Neut # (Auto) 5.2 (1.4-5.7) K/uL Lymph # (Auto) 0.3 L (0.6-2.4) K/uL Drew # (Auto) 0.9 H (0.0-0.8) K/uL Eos # (Auto) 0.0 (0.0-0.7) K/uL Baso # (Auto) 0.0 (0.0-0.1) K/uL Nucleated RBC % 0.0 /100WBC Nucleated RBCs # 0 K/uL Sodium 134 L (136-145) mmol/L Potassium 3.9 (3.5-5.1) mmol/L Chloride 98 (98-107) mmol/L Carbon Dioxide 31.6 (21.0-32.0) mmol/L BUN 17 (7.0-18.0) mg/dL Creatinine 1.0 (0.6-1.0) mg/dL Est Cr Clr Drug Dosing 34.02 mL/min Estimated GFR (MDRD) 52.7 ml/min Glucose 124 H (74-106) mg/dL Calcium 9.1 (8.5-10.1) mg/dL Total Bilirubin 0.2 (0.2-1.0) mg/dL AST 25 (15-37) IU/L ALT 42 (14-63) IU/L Alkaline Phosphatase 51 (46-116) U/L Total Protein 6.0 L (6.4-8.2) g/dL Albumin 1.9 L (3.4-5.0) g/dL Globulin 4.1 H (2.6-4.0) g/dL Albumin/Globulin Ratio 0.5 L (0.9-1.6) Result Diagrams: 05/28/21 05:22 05/28/21 05:22 Sepsis Event Note - Evaluation Sepsis Screening Result: No Definite Risk - Focused Exam Vital Signs: Vital Signs Temp Pulse Resp BP Pulse Ox 05/28/21 07:00 97.3 F 78 20 118/57 L 91 L 05/28/21 03:27 97.6 F 85 24 H 116/57 L 91 L 05/27/21 23:12 97.1 F 79 21 H 113/54 L 93 L - Problem List & Annotations (1) CKD (chronic kidney disease) SNOMED Code(s): 860830874 Code(s): N18.9 - CHRONIC KIDNEY DISEASE, UNSPECIFIED Status: Acute Current Visit: Yes (2) Diabetes mellitus SNOMED Code(s): 49122856 Code(s): E11.9 - TYPE 2 DIABETES MELLITUS WITHOUT COMPLICATIONS Status: Acute Current Visit: Yes (3) Fluid overload SNOMED Code(s): 99107478 Code(s): E87.70 - FLUID OVERLOAD, UNSPECIFIED Status: Acute Current Visit: Yes (4) Hyperlipidemia SNOMED Code(s): 65447118 Code(s): E78.5 - HYPERLIPIDEMIA, UNSPECIFIED Status: Acute Current Visit: Yes (5) Hypertension SNOMED Code(s): 81901459 Code(s): I10 - ESSENTIAL (PRIMARY) HYPERTENSION Status: Acute Current Visit: Yes (6) CHF (congestive heart failure) SNOMED Code(s): 24895907 Code(s): I50.9 - HEART FAILURE, UNSPECIFIED Status: Acute Current Visit: No - Problem List Review Problem List Initiated/Reviewed/Updated: Yes - My Orders Last 24 Hours: My Active Orders 05/27/21 10:00 Levofloxacin/Dextrose 5%-Water [Levaquin in D5W 750 MG/150 ML] 750 mg Premix Bag 1 bag IV Q48H 05/27/21 12:00 dexAMETHasone 6 mg PO DAILY 05/29/21 05:11 CBC WITH AUTO DIFF [HEME] AM CMP [COMPREHENSIVE METABOLIC PN,CMP] [CHEM] AM 05/30/21 05:11 CBC WITH AUTO DIFF [HEME] AM CMP [COMPREHENSIVE METABOLIC PN,CMP] [CHEM] AM - Plan Plan:: 1. Congestive heart failure -Continue Lasix 40 mg per oral route once a day -Continue with oxygen supplementation as needed, currently the patient is on 4 L via nasal cannula and saturating 91% -Continue with duo nebulizer treatment for shortness of breath 2. Pneumonia/URI -The patient has been started on Levaquin 750 mg per IV route every 24 hours -We will continue to monitor patient's clinical status and daily CBC/CMP 3. Autoimmune renal disease -Continue with azathioprine 100 mg per oral route once a day, for 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 we will use heparin 5000 as it is renal protective 4. Interstitial lung disease -Continue with dexamethasone 6 mg per oral route 5. Constipation -We will continue the patient on MiraLAX 17 g per oral route at bedtime 6. Hyperlipidemia -We will continue the patient on simvastatin 40 mg per oral route at bedtime 7. Diabetic neuropathy -We will continue the patient on gabapentin 100 mg per oral route once a day
[2021-05-28] MEDS: Simvastatin 40 MG Tab PO SCH (21:36)
[2021-05-29] MEDS: Albuterol/Ipratropium 3.0-0.5 MG/3 ML Neb Soln NEB SCH ×4 (00:21→17:54)
[2021-05-29] MEDS: Heparin Sodium 5,000 Units/ML Vial SUBCUT SCH ×3 (00:22→16:06)
[2021-05-29 07:55] LABS: CARBON DIOXIDE,CO2 30.3 mmol/L (21.0-32.0); POTASSIUM,K 3.9 mmol/L (3.5-5.1)
--- NOTE | 2021-05-29 08:54 | PCM.PN ---
- General Info Date of Service: 05/29/21 Subjective Update: The patient is an 86-year-old female, on day 10 of service, with a significant past medical history of idiopathic interstitial lung disease, diabetes mellitus, hyperlipidemia, hypertension, and autoimmune renal disease, who was admitted to the medical floor due to congestive heart failure. Upon interview with the patient this morning she is complaining of a productive cough with sputum is stuck in her throat and cannot be cleared. She denies sore throat. She is currently saturating 95% on 4 L of oxygen. She still admits to feeling weak. She is eating and drinking her meals to completion without issues. She denies chest pain, palpitations, cough, nausea, vomiting, abdominal pain, and any problems with urination and/or defecation. - Review of Systems General: Reports: Weakness, Fatigue. Denies: Fever HEENT: Denies: Headaches, Sore Throat Pulmonary: Reports: Shortness of Breath, Cough, Sputum Cardiovascular: Denies: Chest Pain, Palpitations Gastrointestinal: Denies: Abdominal Pain Genitourinary: Denies: Dysuria - Patient Data Vitals - Most Recent: Last Vital Signs Temp 96.5 F L 05/29/21 08:19 Pulse 71 05/29/21 08:19 Resp 20 05/29/21 08:19 BP 123/50 L 05/29/21 08:19 Pulse Ox 93 L 05/29/21 08:19 Weight - Most Recent: 152 lb I&O - Last 24 Hours: Intake & Output 05/28/21 05/29/21 05/29/21 22:59 06:59 14:59 Intake Total 760 550 Output Total 600 600 Balance 160 -50 Lab Results Last 24 Hours: Laboratory Results - last 24 hr 05/29/21 05/29/21 Range/Units 05:29 05:29 WBC 7.14 (4.0-11.0) K/uL RBC 3.84 L (4.30-5.90) M/uL Hgb 10.8 L (12.0-16.0) g/dL Hct 34.0 L (36.0-46.0) % MCV 88.5 (80.0-98.0) fL MCH 28.1 (27.0-32.0) pg MCHC 31.8 (31.0-37.0) g/dL RDW Std Deviation 50.6 (28.0-62.0) fl RDW Coeff of Mili 16 H (11.0-15.0) % Plt Count 514 H (150-400) K/uL MPV 9.90 (7.40-12.00) fL Neut % (Auto) 76.8 (48.0-80.0) % Lymph % (Auto) 10.1 L (16.0-40.0) % [place] % (Auto) 13.0 (0.0-15.0) % Eos % (Auto) 0.0 (0.0-7.0) % Baso % (Auto) 0.1 (0.0-1.5) % Neut # (Auto) 5.5 (1.4-5.7) K/uL Lymph # (Auto) 0.7 (0.6-2.4) K/uL [place] # (Auto) 0.9 H (0.0-0.8) K/uL Eos # (Auto) 0.0 (0.0-0.7) K/uL Baso # (Auto) 0.0 (0.0-0.1) K/uL Nucleated RBC % 0.0 /100WBC Nucleated RBCs # 0 K/uL Sodium 136 (136-145) mmol/L Potassium 3.9 (3.5-5.1) mmol/L Chloride 101 (98-107) mmol/L Carbon Dioxide 30.3 (21.0-32.0) mmol/L BUN 28 H (7.0-18.0) mg/dL Creatinine 1.0 (0.6-1.0) mg/dL Est Cr Clr Drug Dosing 34.02 mL/min Estimated GFR (MDRD) 52.7 ml/min Glucose 90 (74-106) mg/dL Calcium 8.9 (8.5-10.1) mg/dL Total Bilirubin 0.2 (0.2-1.0) mg/dL AST 29 (15-37) IU/L ALT 39 (14-63) IU/L Alkaline Phosphatase 49 (46-116) U/L Total Protein 5.8 L (6.4-8.2) g/dL Albumin 1.9 L (3.4-5.0) g/dL Globulin 3.9 (2.6-4.0) g/dL Albumin/Globulin Ratio 0.5 L (0.9-1.6) Med Orders - Current: Current Medications Acetaminophen (Acetaminophen 325 Mg Tab) 650 mg PO Q4H PRN PRN Reason: Pain (Mild 1-3)/fever Albuterol/Ipratropium (Albuterol/Ipratropium 3.0-0.5 Mg/3 Ml Neb Soln) 3 ml NEB Q6HRRT [facility] Last Admin: 05/29/21 06:45 Dose: 3 ml Documented by: Azathioprine (Azathioprine 50 Mg Tab) 100 mg PO DAILY [facility] Last Admin: 05/28/21 09:25 Dose: 100 mg Documented by: Benzonatate (Benzonatate 100 Mg Cap) 100 mg PO Q6H PRN PRN Reason: Cough Last Admin: 05/26/21 20:46 Dose: 100 mg Documented by: Calcium Carbonate/Glycine (Calcium Carbonate 500 Mg Tab.Chew) 500 mg PO DAILY [facility] Last Admin: 05/28/21 09:23 Dose: 500 mg Documented by: Dexamethasone (Dexamethasone 4 Mg Tab) 6 mg PO DAILY [facility] Last Admin: 05/28/21 09:25 Dose: 6 mg Documented by: Docusate Sodium (Docusate Sodium 100 Mg Cap) 100 mg PO DAILY PRN PRN Reason: Constipation Last Admin: 05/23/21 04:34 Dose: 100 mg Documented by: Furosemide (Furosemide 40 Mg Tab) 40 mg PO DAILY [facility] Last Admin: 05/28/21 09:23 Dose: 40 mg Documented by: Gabapentin (Gabapentin 100 Mg Cap) 100 mg PO DAILY [facility] Last Admin: 05/28/21 09:22 Dose: 100 mg Documented by: Heparin Sodium (Porcine) (Heparin Sodium 5,000 Units/Ml Vial) 5,000 units SUBCUT Q8H [facility] Last Admin: 05/29/21 00:22 Dose: 5,000 units Documented by: Pantoprazole Sodium 40 mg/ (Sodium Chloride) 10 mls @ 300 mls/hr IV DAILY [facility] Last Admin: 05/28/21 09:29 Dose: 300 mls/hr Documented by: Levofloxacin/Dextrose 750 mg/ (Premix) 150 mls @ 100 mls/hr IV Q48H [facility] Last Admin: 05/27/21 10:20 Dose: 100 mls/hr Documented by: Ibuprofen (Ibuprofen 200 Mg Tab) 200 mg PO Q6H PRN PRN Reason: Pain (moderate 4-6) Multivitamins/Minerals/Vitamin C (Multivitamin Tab) 1 tab PO DAILY [facility] Last Admin: 05/28/21 09:23 Dose: 1 tab Documented by: Ondansetron HCl (Ondansetron 4 Mg/2 Ml Sdv) 4 mg IVPUSH Q4H PRN PRN Reason: Nausea/Vomiting Polyethylene Glycol (Polyethylene Glycol 3350 Powder 17 Gm Packet) 17 gm PO DAILY [facility] Last Admin: 05/28/21 09:29 Dose: 17 gm Documented by: Simvastatin (Simvastatin 40 Mg Tab) 40 mg PO BEDTIME [facility] Last Admin: 05/28/21 21:36 Dose: 40 mg Documented by: Discontinued Medications Albuterol/Ipratropium (Albuterol/Ipratropium 3.0-0.5 Mg/3 Ml Neb Soln) 3 ml NEB Q4HRRT PRN PRN Reason: Shortness Of Breath/wheezing Last Admin: 05/24/21 00:37 Dose: 3 ml Documented by: Amlodipine Besylate (Amlodipine 5 Mg Tab) 5 mg PO DAILY [facility] Last Admin: 05/25/21 08:24 Dose: Not Given Documented by: Bisacodyl (Bisacodyl 10 Mg Supp) 10 mg RECTAL ONETIME ONE Stop: 05/24/21 06:58 Last Admin: 05/24/21 08:46 Dose: 10 mg Documented by: Furosemide (Furosemide 40 Mg/4 Ml Vial) 40 mg IVPUSH BID [facility] Last Admin: 05/25/21 08:05 Dose: 40 mg Documented by: Furosemide (Furosemide 20 Mg/2 Ml Vial) 20 mg IVPUSH NOW ONE Stop: 05/20/21 17:01 Last Admin: 05/20/21 17:52 Dose: 20 mg Documented by: Iopamidol (Iopamidol 755 Mg/Ml 500 Ml Multipack Bottle) 100 ml IVPUSH ONETIME ONE Stop: 05/25/21 15:00 Last Admin: 05/25/21 15:00 Dose: 100 ml Documented by: Potassium Chloride (Potassium Chloride 20 Meq Tab.Er) 60 meq PO ONETIME ONE Stop: 05/21/21 09:40 Last Admin: 05/21/21 10:28 Dose: 60 meq Documented by: Potassium Chloride (Potassium Chloride 20 Meq Tab.Er) 40 meq PO ONETIME ONE Stop: 05/22/21 12:06 Last Admin: 05/22/21 13:04 Dose: 40 meq Documented by: - Exam General: Alert, Oriented, Cooperative HEENT: Mucous Membr. Moist/[place] Neck: Trachea Midline Lungs: Rhonchi Cardiovascular: Regular Rate, Regular Rhythm GI/Abdominal Exam: Normal Bowel Sounds, Soft, Non-Tender, No Organomegaly - Patient Data Lab Results Last 24 hrs: Laboratory Results - last 24 hr 05/29/21 05/29/21 Range/Units 05:29 05:29 WBC 7.14 (4.0-11.0) K/uL RBC 3.84 L (4.30-5.90) M/uL Hgb 10.8 L (12.0-16.0) g/dL Hct 34.0 L (36.0-46.0) % MCV 88.5 (80.0-98.0) fL MCH 28.1 (27.0-32.0) pg MCHC 31.8 (31.0-37.0) g/dL RDW Std Deviation 50.6 (28.0-62.0) fl RDW Coeff of Mili 16 H (11.0-15.0) % Plt Count 514 H (150-400) K/uL MPV 9.90 (7.40-12.00) fL Neut % (Auto) 76.8 (48.0-80.0) % Lymph % (Auto) 10.1 L (16.0-40.0) % [place] % (Auto) 13.0 (0.0-15.0) % Eos % (Auto) 0.0 (0.0-7.0) % Baso % (Auto) 0.1 (0.0-1.5) % Neut # (Auto) 5.5 (1.4-5.7) K/uL Lymph # (Auto) 0.7 (0.6-2.4) K/uL [place] # (Auto) 0.9 H (0.0-0.8) K/uL Eos # (Auto) 0.0 (0.0-0.7) K/uL Baso # (Auto) 0.0 (0.0-0.1) K/uL Nucleated RBC % 0.0 /100WBC Nucleated RBCs # 0 K/uL Sodium 136 (136-145) mmol/L Potassium 3.9 (3.5-5.1) mmol/L Chloride 101 (98-107) mmol/L Carbon Dioxide 30.3 (21.0-32.0) mmol/L BUN 28 H (7.0-18.0) mg/dL Creatinine 1.0 (0.6-1.0) mg/dL Est Cr Clr Drug Dosing 34.02 mL/min Estimated GFR (MDRD) 52.7 ml/min Glucose 90 (74-106) mg/dL Calcium 8.9 (8.5-10.1) mg/dL Total Bilirubin 0.2 (0.2-1.0) mg/dL AST 29 (15-37) IU/L ALT 39 (14-63) IU/L Alkaline Phosphatase 49 (46-116) U/L Total Protein 5.8 L (6.4-8.2) g/dL Albumin 1.9 L (3.4-5.0) g/dL Globulin 3.9 (2.6-4.0) g/dL Albumin/Globulin Ratio 0.5 L (0.9-1.6) Result Diagrams: 05/29/21 05:29 05/29/21 05:29 Sepsis Event Note - Evaluation Sepsis Screening Result: No Definite Risk - Focused Exam Vital Signs: Vital Signs Temp Pulse Resp BP Pulse Ox 05/29/21 08:19 96.5 F L 71 20 123/50 L 93 L 05/29/21 03:11 97.9 F 78 20 107/53 L 95 05/28/21 23:18 97 F 77 23 H 132/60 94 L - Problem List & Annotations (1) CKD (chronic kidney disease) SNOMED Code(s): 517788302 Code(s): N18.9 - CHRONIC KIDNEY DISEASE, UNSPECIFIED Status: Acute Current Visit: Yes (2) Diabetes mellitus SNOMED Code(s): 69731931 Code(s): E11.9 - TYPE 2 DIABETES MELLITUS WITHOUT COMPLICATIONS Status: Acute Current Visit: Yes (3) Fluid overload SNOMED Code(s): 69380002 Code(s): E87.70 - FLUID OVERLOAD, UNSPECIFIED Status: Acute Current Visit: Yes (4) Hyperlipidemia SNOMED Code(s): 82349631 Code(s): E78.5 - HYPERLIPIDEMIA, UNSPECIFIED Status: Acute Current Visit: Yes (5) Hypertension SNOMED Code(s): 33351389 Code(s): I10 - ESSENTIAL (PRIMARY) HYPERTENSION Status: Acute Current Visit: Yes (6) CHF (congestive heart failure) SNOMED Code(s): 74852564 Code(s): I50.9 - HEART FAILURE, UNSPECIFIED Status: Acute Current Visit: No - Problem List Review Problem List Initiated/Reviewed/Updated: Yes - My Orders Last 24 Hours: My Active Orders 05/30/21 05:11 CBC WITH AUTO DIFF [HEME] AM CMP [COMPREHENSIVE METABOLIC PN,CMP] [CHEM] AM - Plan Plan:: 1. Congestive heart failure -Continue Lasix 40 mg per oral route once a day -Continue with oxygen supplementation as needed -Continue with duo nebulizer treatment for shortness of breath 2. Pneumonia/URI -The patient has been started on Levaquin 750 mg per IV route every 48 hours -We will continue to monitor patient's clinical status and daily CBC/CMP 3. Autoimmune renal disease -Continue with azathioprine 100 mg per oral route once a day, for 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 we will use heparin 5000 as it is renal protective 4. Interstitial lung disease -Continue with dexamethasone 6 mg per oral route
[2021-05-29] MEDS: Levofloxacin/Dextrose 5%-Water 750 MG in Premix Bag 1 BAG IV SCH (09:19)
[2021-05-29] MEDS: Gabapentin 100 MG Cap PO SCH (09:20)
[2021-05-29] MEDS: Multivitamin Tab PO SCH (09:20)
[2021-05-29] MEDS: Furosemide 40 MG Tab PO SCH (09:20)
[2021-05-29] MEDS: Calcium Carbonate 500 MG Tab.Chew PO SCH (09:20)
[2021-05-29] MEDS: Dexamethasone 4 MG Tab PO SCH (09:20)
[2021-05-29] MEDS: Pantoprazole 40 MG in Sodium Chloride 0.9% 10 ML IV SCH (09:21)
[2021-05-29] MEDS: Polyethylene Glycol 3350 Powder 17 GM Packet PO SCH (09:24)
[2021-05-29] MEDS: Simvastatin 40 MG Tab PO SCH (20:26)
[2021-05-30] MEDS: Albuterol/Ipratropium 3.0-0.5 MG/3 ML Neb Soln NEB SCH ×4 (00:35→17:34)
[2021-05-30] MEDS: Heparin Sodium 5,000 Units/ML Vial SUBCUT SCH ×3 (00:35→17:55)
[2021-05-30 08:19] LABS: CARBON DIOXIDE,CO2 30.8 mmol/L (21.0-32.0); POTASSIUM,K 3.9 mmol/L (3.5-5.1)
[2021-05-30] MEDS: Multivitamin Tab PO SCH (09:04)
[2021-05-30] MEDS: Dexamethasone 4 MG Tab PO SCH (09:07)
[2021-05-30] MEDS: Furosemide 40 MG Tab PO SCH (09:07)
[2021-05-30] MEDS: Calcium Carbonate 500 MG Tab.Chew PO SCH (09:09)
[2021-05-30] MEDS: Gabapentin 100 MG Cap PO SCH (09:09)
[2021-05-30] MEDS: Pantoprazole 40 MG in Sodium Chloride 0.9% 10 ML IV SCH (09:10)
[2021-05-30] MEDS: Polyethylene Glycol 3350 Powder 17 GM Packet PO SCH ×2 (09:10→11:02)
--- NOTE | 2021-05-30 18:44 | PCM.PN ---
- General Info Date of Service: 05/30/21 - Review of Systems Systems Review Comment:: feeling stronger - Patient Data Vitals - Most Recent: Last Vital Signs Temp 35.9 C L 05/30/21 15:00 Pulse 78 05/30/21 15:00 Resp 22 H 05/30/21 15:00 BP 116/60 05/30/21 15:00 Pulse Ox 96 05/30/21 15:00 Weight - Most Recent: 67.948 kg I&O - Last 24 Hours: Intake & Output 05/30/21 05/30/21 05/30/21 06:59 14:59 22:59 Intake Total 500 120 Output Total 700 Balance -200 120 Lab Results Last 24 Hours: Laboratory Results - last 24 hr 05/30/21 05/30/21 05/30/21 Range/Units 06:20 06:20 15:20 WBC 8.58 (4.0-11.0) K/uL RBC 4.39 (4.30-5.90) M/uL Hgb 12.3 (12.0-16.0) g/dL Hct 39.0 (36.0-46.0) % MCV 88.8 (80.0-98.0) fL MCH 28.0 (27.0-32.0) pg MCHC 31.5 (31.0-37.0) g/dL RDW Std Deviation 51.8 (28.0-62.0) fl RDW Coeff of Mili 16 H (11.0-15.0) % Plt Count 629 H (150-400) K/uL MPV 9.90 (7.40-12.00) fL Neut % (Auto) 71.7 (48.0-80.0) % Lymph % (Auto) 8.9 L (16.0-40.0) % [place] % (Auto) 19.3 H (0.0-15.0) % Eos % (Auto) 0.0 (0.0-7.0) % Baso % (Auto) 0.1 (0.0-1.5) % Neut # (Auto) 6.2 H (1.4-5.7) K/uL Lymph # (Auto) 0.8 (0.6-2.4) K/uL [place] # (Auto) 1.7 H (0.0-0.8) K/uL Eos # (Auto) 0.0 (0.0-0.7) K/uL Baso # (Auto) 0.0 (0.0-0.1) K/uL Nucleated RBC % 0.0 /100WBC Nucleated RBCs # 0 K/uL Sodium 137 (136-145) mmol/L Potassium 3.9 (3.5-5.1) mmol/L Chloride 100 (98-107) mmol/L Carbon Dioxide 30.8 (21.0-32.0) mmol/L BUN 30 H (7.0-18.0) mg/dL Creatinine 1.1 H (0.6-1.0) mg/dL Est Cr Clr Drug Dosing 30.93 mL/min Estimated GFR (MDRD) 47.2 ml/min Glucose 94 (74-106) mg/dL Calcium 9.4 (8.5-10.1) mg/dL Total Bilirubin 0.2 (0.2-1.0) mg/dL AST 27 (15-37) IU/L ALT 43 (14-63) IU/L Alkaline Phosphatase 60 (46-116) U/L Total Protein 6.8 (6.4-8.2) g/dL Albumin 2.3 L (3.4-5.0) g/dL Globulin 4.5 H (2.6-4.0) g/dL Albumin/Globulin Ratio 0.5 L (0.9-1.6) SARS-CoV-2 RNA ([facility]) NEGATIVE (NEGATIVE) Med Orders - Current: Current Medications Acetaminophen (Acetaminophen 325 Mg Tab) 650 mg PO Q4H PRN PRN Reason: Pain (Mild 1-3)/fever Albuterol/Ipratropium (Albuterol/Ipratropium 3.0-0.5 Mg/3 Ml Neb Soln) 3 ml NEB Q6HRRT [facility] Last Admin: 05/30/21 17:34 Dose: 3 ml Documented by: Azathioprine (Azathioprine 50 Mg Tab) 100 mg PO DAILY [facility] Last Admin: 05/30/21 09:02 Dose: 100 mg Documented by: Benzonatate (Benzonatate 100 Mg Cap) 100 mg PO Q6H PRN PRN Reason: Cough Last Admin: 05/26/21 20:46 Dose: 100 mg Documented by: Calcium Carbonate/Glycine (Calcium Carbonate 500 Mg Tab.Chew) 500 mg PO DAILY [facility] Last Admin: 05/30/21 09:09 Dose: 500 mg Documented by: Dexamethasone (Dexamethasone 4 Mg Tab) 6 mg PO DAILY [facility] Last Admin: 05/30/21 09:07 Dose: 6 mg Documented by: Docusate Sodium (Docusate Sodium 100 Mg Cap) 100 mg PO DAILY PRN PRN Reason: Constipation Last Admin: 05/23/21 04:34 Dose: 100 mg Documented by: Gabapentin (Gabapentin 100 Mg Cap) 100 mg PO DAILY [facility] Last Admin: 05/30/21 09:09 Dose: 100 mg Documented by: Heparin Sodium (Porcine) (Heparin Sodium 5,000 Units/Ml Vial) 5,000 units SUBCUT Q8H [facility] Last Admin: 05/30/21 17:55 Dose: 5,000 units Documented by: Pantoprazole Sodium 40 mg/ (Sodium Chloride) 10 mls @ 300 mls/hr IV DAILY [facility] Last Admin: 05/30/21 09:10 Dose: 300 mls/hr Documented by: Levofloxacin/Dextrose 750 mg/ (Premix) 150 mls @ 100 mls/hr IV Q48H [facility] Last Admin: 05/29/21 09:19 Dose: 100 mls/hr Documented by: Ibuprofen (Ibuprofen 200 Mg Tab) 200 mg PO Q6H PRN PRN Reason: Pain (moderate 4-6) Multivitamins/Minerals/Vitamin C (Multivitamin Tab) 1 tab PO DAILY [facility] Last Admin: 05/30/21 09:04 Dose: 1 tab Documented by: Ondansetron HCl (Ondansetron 4 Mg/2 Ml Sdv) 4 mg IVPUSH Q4H PRN PRN Reason: Nausea/Vomiting Polyethylene Glycol (Polyethylene Glycol 3350 Powder 17 Gm Packet) 17 gm PO DAILY [facility] Last Admin: 05/30/21 11:02 Dose: Not Given Documented by: Simvastatin (Simvastatin 40 Mg Tab) 40 mg PO BEDTIME [facility] Last Admin: 05/29/21 20:26 Dose: 40 mg Documented by: Discontinued Medications Albuterol/Ipratropium (Albuterol/Ipratropium 3.0-0.5 Mg/3 Ml Neb Soln) 3 ml NEB Q4HRRT PRN PRN Reason: Shortness Of Breath/wheezing Last Admin: 05/24/21 00:37 Dose: 3 ml Documented by: Amlodipine Besylate (Amlodipine 5 Mg Tab) 5 mg PO DAILY [facility] Last Admin: 05/25/21 08:24 Dose: Not Given Documented by: Bisacodyl (Bisacodyl 10 Mg Supp) 10 mg RECTAL ONETIME ONE Stop: 05/24/21 06:58 Last Admin: 05/24/21 08:46 Dose: 10 mg Documented by: Furosemide (Furosemide 40 Mg/4 Ml Vial) 40 mg IVPUSH BID [facility] Last Admin: 05/25/21 08:05 Dose: 40 mg Documented by: Furosemide (Furosemide 20 Mg/2 Ml Vial) 20 mg IVPUSH NOW ONE Stop: 05/20/21 17:01 Last Admin: 05/20/21 17:52 Dose: 20 mg Documented by: Furosemide (Furosemide 40 Mg Tab) 40 mg PO DAILY [facility] Last Admin: 05/30/21 09:07 Dose: 40 mg Documented by: Iopamidol (Iopamidol 755 Mg/Ml 500 Ml Multipack Bottle) 100 ml IVPUSH ONETIME ONE Stop: 05/25/21 15:00 Last Admin: 05/25/21 15:00 Dose: 100 ml Documented by: Potassium Chloride (Potassium Chloride 20 Meq Tab.Er) 60 meq PO ONETIME ONE Stop: 05/21/21 09:40 Last Admin: 05/21/21 10:28 Dose: 60 meq Documented by: Potassium Chloride (Potassium Chloride 20 Meq Tab.Er) 40 meq PO ONETIME ONE Stop: 05/22/21 12:06 Last Admin: 05/22/21 13:04 Dose: 40 meq Documented by: - Exam General: Alert, Oriented Neck: Supple Lungs: Clear to Auscultation, Normal Respiratory Effort GI/Abdominal Exam: Soft Extremities: Non-Tender, No Pedal Edema Skin: Warm, Dry, Intact Neurological: No New Focal Deficit - Patient Data Lab Results Last 24 hrs: Laboratory Results - last 24 hr 05/30/21 05/30/21 05/30/21 Range/Units 06:20 06:20 15:20 WBC 8.58 (4.0-11.0) K/uL RBC 4.39 (4.30-5.90) M/uL Hgb 12.3 (12.0-16.0) g/dL Hct 39.0 (36.0-46.0) % MCV 88.8 (80.0-98.0) fL MCH 28.0 (27.0-32.0) pg MCHC 31.5 (31.0-37.0) g/dL RDW Std Deviation 51.8 (28.0-62.0) fl RDW Coeff of Mili 16 H (11.0-15.0) % Plt Count 629 H (150-400) K/uL MPV 9.90 (7.40-12.00) fL Neut % (Auto) 71.7 (48.0-80.0) % Lymph % (Auto) 8.9 L (16.0-40.0) % [place] % (Auto) 19.3 H (0.0-15.0) % Eos % (Auto) 0.0 (0.0-7.0) % Baso % (Auto) 0.1 (0.0-1.5) % Neut # (Auto) 6.2 H (1.4-5.7) K/uL Lymph # (Auto) 0.8 (0.6-2.4) K/uL [place] # (Auto) 1.7 H (0.0-0.8) K/uL Eos # (Auto) 0.0 (0.0-0.7) K/uL Baso # (Auto) 0.0 (0.0-0.1) K/uL Nucleated RBC % 0.0 /100WBC Nucleated RBCs # 0 K/uL Sodium 137 (136-145) mmol/L Potassium 3.9 (3.5-5.1) mmol/L Chloride 100 (98-107) mmol/L Carbon Dioxide 30.8 (21.0-32.0) mmol/L BUN 30 H (7.0-18.0) mg/dL Creatinine 1.1 H (0.6-1.0) mg/dL Est Cr Clr Drug Dosing 30.93 mL/min Estimated GFR (MDRD) 47.2 ml/min Glucose 94 (74-106) mg/dL Calcium 9.4 (8.5-10.1) mg/dL Total Bilirubin 0.2 (0.2-1.0) mg/dL AST 27 (15-37) IU/L ALT 43 (14-63) IU/L Alkaline Phosphatase 60 (46-116) U/L Total Protein 6.8 (6.4-8.2) g/dL Albumin 2.3 L (3.4-5.0) g/dL Globulin 4.5 H (2.6-4.0) g/dL Albumin/Globulin Ratio 0.5 L (0.9-1.6) SARS-CoV-2 RNA ([facility]) NEGATIVE (NEGATIVE) Result Diagrams: 05/30/21 06:20 05/30/21 06:20 Sepsis Event Note - Evaluation Sepsis Screening Result: No Definite Risk - Focused Exam Vital Signs: Vital Signs Temp Pulse Resp BP Pulse Ox 05/30/21 15:00 35.9 C L 78 22 H 116/60 96 05/30/21 11:51 35.8 C L 76 24 H 105/57 L 99 05/30/21 07:30 36.5 C 79 19 110/60 97 - Problem List & Annotations (1) CKD (chronic kidney disease) SNOMED Code(s): 973427310 Code(s): N18.9 - CHRONIC KIDNEY DISEASE, UNSPECIFIED Status: Acute Current Visit: Yes (2) Fluid overload SNOMED Code(s): 53984141 Code(s): E87.70 - FLUID OVERLOAD, UNSPECIFIED Status: Acute Current Visit: Yes - Problem List Review Problem List Initiated/Reviewed/Updated: Yes - Plan Plan:: 1. Congestive heart failure -Continue Lasix 40 mg per oral route once a day -Continue with oxygen supplementation as needed -Continue with duo nebulizer treatment for shortness of breath 2. 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 Interstitial lung disease -Continue with dexamethasone 6 mg per oral route
--- NOTE | 2021-05-30 18:50 | PCM.DCSUM1 ---
Discharge Summary - Discharge Data Discharge Date: 05/30/21 Discharge Disposition: Home, Self-Care 01 Condition: Good - Referral to Home Health Primary Care Physician: PCP None - Discharge Diagnosis/Problem(s) (1) CKD (chronic kidney disease) SNOMED Code(s): 168134468 ICD Code: N18.9 - CHRONIC KIDNEY DISEASE, UNSPECIFIED Status: Acute Current Visit: Yes (2) Fluid overload SNOMED Code(s): 62931412 ICD Code: E87.70 - FLUID OVERLOAD, UNSPECIFIED Status: Acute Current Visit: Yes - Patient Summary/Data Consults: Consultations 05/24/21 06:57 PT Evaluation and Treatment [CONS] Routine Hospital Course: Patient is an 86-year-old female with past medical history of diabetes, COPD, hyperlipidemia, hypertension, CKD, and interstitial lung disease. She was transfered from [place] to [facility] as there were no beds available in [place]. Patient has been struggling with shortness of breath and cough for several months. On presentation she was noted to be hypoxic and requring 6 liters to keeps sats above 90%. Due to elevated proBNP and CXR findings of pulmonary edema it was felt she had CHF with fluid overload. Patient was treated with IV lasix for six days with baljeet improvement. She was then started on dexamethason and Levaquin after which she reported improvement in her dyspnea and strength. She has been weaned down to 2 L NC and she is ready for discharge. She is to be transfered back to [place] to an assisted living facility. - Patient Instructions Diet: Regular Diet as Tolerated Activity: As Tolerated - Discharge Plan Prescriptions/Med Rec: dexAMETHasone [Dexamethasone] 6 mg PO DAILY #5 tablet levoFLOXacin [Levaquin] 500 mg PO DAILY #7 tab Home Medications: Home Meds Calcium Carbonate [Calcium] 500 mg PO DAILY 08/07/16 [History] Multivit-Min/Iron/Folic/Lutein [Centrum Silver Women Tablet] 1 tab PO DAILY 08/07/16 [History] Simvastatin [Zocor] 40 mg PO BEDTIME 08/07/16 [History] Ibuprofen 200 mg PO Q6H PRN 06/28/19 [History] Gabapentin [Neurontin] 100 mg PO DAILY 05/20/21 [History] Promethazine HCl/Codeine [Prometh-Codein 6.25-10 mg/5 ml] 5 ml PO Q6HR PRN 05/20/21 [History] amLODIPine [Norvasc] 5 mg PO DAILY 05/20/21 [History] azaTHIOprine [Imuran] 100 mg PO DAILY 05/20/21 [History] dexAMETHasone [Dexamethasone] 6 mg PO DAILY #5 tablet 05/30/21 [Rx] levoFLOXacin [Levaquin] 500 mg PO DAILY #7 tab 05/30/21 [Rx] Oxygen Therapy Mode: Nasal Cannula Oxygen Flow Rate (L/min): 2 Patient Handouts: How to Take Your Blood Pressure, [id number], Preventing High Cholesterol, Hypertension, Adult, [id number], Chronic Kidney Disease, Adult, [id number], Water Intoxication, Managing Your Hypertension Referrals: Aj Whitfield MD [Ordering Only Provider] - 06/10/21 2:30 pm - Discharge Summary/Plan Comment DC Time >30 min.: No Total # of Minutes for Discharge Time: 20 - Patient Data Vitals - Most Recent: Last Vital Signs Temp 35.9 C L 05/30/21 15:00 Pulse 78 05/30/21 15:00 Resp 22 H 05/30/21 15:00 BP 116/60 05/30/21 15:00 Pulse Ox 96 05/30/21 15:00 Weight - Most Recent: 67.948 kg I&O - Last 24 hours: Intake & Output 05/30/21 05/30/21 05/30/21 06:59 14:59 22:59 Intake Total 500 120 Output Total 700 Balance -200 120 Lab Results - Last 24 hrs: Laboratory Results - last 24 hr 05/30/21 05/30/21 05/30/21 Range/Units 06:20 06:20 15:20 WBC 8.58 (4.0-11.0) K/uL RBC 4.39 (4.30-5.90) M/uL Hgb 12.3 (12.0-16.0) g/dL Hct 39.0 (36.0-46.0) % MCV 88.8 (80.0-98.0) fL MCH 28.0 (27.0-32.0) pg MCHC 31.5 (31.0-37.0) g/dL RDW Std Deviation 51.8 (28.0-62.0) fl RDW Coeff of Mili 16 H (11.0-15.0) % Plt Count 629 H (150-400) K/uL MPV 9.90 (7.40-12.00) fL Neut % (Auto) 71.7 (48.0-80.0) % Lymph % (Auto) 8.9 L (16.0-40.0) % [place] % (Auto) 19.3 H (0.0-15.0) % Eos % (Auto) 0.0 (0.0-7.0) % Baso % (Auto) 0.1 (0.0-1.5) % Neut # (Auto) 6.2 H (1.4-5.7) K/uL Lymph # (Auto) 0.8 (0.6-2.4) K/uL [place] # (Auto) 1.7 H (0.0-0.8) K/uL Eos # (Auto) 0.0 (0.0-0.7) K/uL Baso # (Auto) 0.0 (0.0-0.1) K/uL Nucleated RBC % 0.0 /100WBC Nucleated RBCs # 0 K/uL Sodium 137 (136-145) mmol/L Potassium 3.9 (3.5-5.1) mmol/L Chloride 100 (98-107) mmol/L Carbon Dioxide 30.8 (21.0-32.0) mmol/L BUN 30 H (7.0-18.0) mg/dL Creatinine 1.1 H (0.6-1.0) mg/dL Est Cr Clr Drug Dosing 30.93 mL/min Estimated GFR (MDRD) 47.2 ml/min Glucose 94 (74-106) mg/dL Calcium 9.4 (8.5-10.1) mg/dL Total Bilirubin 0.2 (0.2-1.0) mg/dL AST 27 (15-37) IU/L ALT 43 (14-63) IU/L Alkaline Phosphatase 60 (46-116) U/L Total Protein 6.8 (6.4-8.2) g/dL Albumin 2.3 L (3.4-5.0) g/dL Globulin 4.5 H (2.6-4.0) g/dL Albumin/Globulin Ratio 0.5 L (0.9-1.6) SARS-CoV-2 RNA ([facility]) NEGATIVE (NEGATIVE) Med Orders - Current: Current Medications Acetaminophen (Acetaminophen 325 Mg Tab) 650 mg PO Q4H PRN PRN Reason: Pain (Mild 1-3)/fever Albuterol/Ipratropium (Albuterol/Ipratropium 3.0-0.5 Mg/3 Ml Neb Soln) 3 ml NEB Q6HRRT [facility] Last Admin: 05/30/21 17:34 Dose: 3 ml Documented by: Azathioprine (Azathioprine 50 Mg Tab) 100 mg PO DAILY [facility] Last Admin: 05/30/21 09:02 Dose: 100 mg Documented by: Benzonatate (Benzonatate 100 Mg Cap) 100 mg PO Q6H PRN PRN Reason: Cough Last Admin: 05/26/21 20:46 Dose: 100 mg Documented by: Calcium Carbonate/Glycine (Calcium Carbonate 500 Mg Tab.Chew) 500 mg PO DAILY [facility] Last Admin: 05/30/21 09:09 Dose: 500 mg Documented by: Dexamethasone (Dexamethasone 4 Mg Tab) 6 mg PO DAILY [facility] Last Admin: 05/30/21 09:07 Dose: 6 mg Documented by: Docusate Sodium (Docusate Sodium 100 Mg Cap) 100 mg PO DAILY PRN PRN Reason: Constipation Last Admin: 05/23/21 04:34 Dose: 100 mg Documented by: Gabapentin (Gabapentin 100 Mg Cap) 100 mg PO DAILY [facility] Last Admin: 05/30/21 09:09 Dose: 100 mg Documented by: Heparin Sodium (Porcine) (Heparin Sodium 5,000 Units/Ml Vial) 5,000 units SUBCUT Q8H [facility] Last Admin: 05/30/21 17:55 Dose: 5,000 units Documented by: Pantoprazole Sodium 40 mg/ (Sodium Chloride) 10 mls @ 300 mls/hr IV DAILY [facility] Last Admin: 05/30/21 09:10 Dose: 300 mls/hr Documented by: Levofloxacin/Dextrose 750 mg/ (Premix) 150 mls @ 100 mls/hr IV Q48H [facility] Last Admin: 05/29/21 09:19 Dose: 100 mls/hr Documented by: Ibuprofen (Ibuprofen 200 Mg Tab) 200 mg PO Q6H PRN PRN Reason: Pain (moderate 4-6) Multivitamins/Minerals/Vitamin C (Multivitamin Tab) 1 tab PO DAILY [facility] Last Admin: 05/30/21 09:04 Dose: 1 tab Documented by: Ondansetron HCl (Ondansetron 4 Mg/2 Ml Sdv) 4 mg IVPUSH Q4H PRN PRN Reason: Nausea/Vomiting Polyethylene Glycol (Polyethylene Glycol 3350 Powder 17 Gm Packet) 17 gm PO DAILY [facility] Last Admin: 05/30/21 11:02 Dose: Not Given Documented by: Simvastatin (Simvastatin 40 Mg Tab) 40 mg PO BEDTIME [facility] Last Admin: 05/29/21 20:26 Dose: 40 mg Documented by: Discontinued Medications Albuterol/Ipratropium (Albuterol/Ipratropium 3.0-0.5 Mg/3 Ml Neb Soln) 3 ml NEB Q4HRRT PRN PRN Reason: Shortness Of Breath/wheezing Last Admin: 05/24/21 00:37 Dose: 3 ml Documented by: Amlodipine Besylate (Amlodipine 5 Mg Tab) 5 mg PO DAILY [facility] Last Admin: 05/25/21 08:24 Dose: Not Given Documented by: Bisacodyl (Bisacodyl 10 Mg Supp) 10 mg RECTAL ONETIME ONE Stop: 05/24/21 06:58 Last Admin: 05/24/21 08:46 Dose: 10 mg Documented by: Furosemide (Furosemide 40 Mg/4 Ml Vial) 40 mg IVPUSH BID [facility] Last Admin: 05/25/21 08:05 Dose: 40 mg Documented by: Furosemide (Furosemide 20 Mg/2 Ml Vial) 20 mg IVPUSH NOW ONE Stop: 05/20/21 17:01 Last Admin: 05/20/21 17:52 Dose: 20 mg Documented by: Furosemide (Furosemide 40 Mg Tab) 40 mg PO DAILY [facility] Last Admin: 05/30/21 09:07 Dose: 40 mg Documented by: Iopamidol (Iopamidol 755 Mg/Ml 500 Ml Multipack Bottle) 100 ml IVPUSH ONETIME ONE Stop: 05/25/21 15:00 Last Admin: 05/25/21 15:00 Dose: 100 ml Documented by: Potassium Chloride (Potassium Chloride 20 Meq Tab.Er) 60 meq PO ONETIME ONE Stop: 05/21/21 09:40 Last Admin: 05/21/21 10:28 Dose: 60 meq Documented by: Potassium Chloride (Potassium Chloride 20 Meq Tab.Er) 40 meq PO ONETIME ONE Stop: 05/22/21 12:06 Last Admin: 05/22/21 13:04 Dose: 40 meq Documented by:
[2021-05-30] MEDS: Simvastatin 40 MG Tab PO SCH (21:08)
[2021-05-31] MEDS: Albuterol/Ipratropium 3.0-0.5 MG/3 ML Neb Soln NEB SCH ×2 (00:26→07:50)
[2021-05-31] MEDS: Heparin Sodium 5,000 Units/ML Vial SUBCUT SCH ×2 (00:26→08:10)
[2021-05-31] MEDS: Calcium Carbonate 500 MG Tab.Chew PO SCH (08:10)
[2021-05-31] MEDS: Pantoprazole 40 MG in Sodium Chloride 0.9% 10 ML IV SCH (08:10)
[2021-05-31] MEDS: Dexamethasone 4 MG Tab PO SCH (08:11)
[2021-05-31] MEDS: Gabapentin 100 MG Cap PO SCH (08:12)
[2021-05-31] MEDS: Multivitamin Tab PO SCH (08:12)
[2021-05-31] MEDS: Polyethylene Glycol 3350 Powder 17 GM Packet PO SCH (08:12)
[2021-05-31] MEDS: Benzonatate 100 MG Cap PO PRN (08:20)
[2021-05-31] MEDS: Levofloxacin/Dextrose 5%-Water 750 MG in Premix Bag 1 BAG IV SCH (10:27)
[2021-05-31 13:56] VITALS: BP 115/58; PULSE 90
== END 2021-05-31 11:47 | disposition home or self-care (01) | DRG 291 ==
LOC: MW.MS 16:00
PROVIDERS: ADMIT Student in an Organized Health Care Education/Training Program; ATTEND Student in an Organized Health Care Education/Training Program
DX: I13.0 Hypertensive heart and chronic kidney disease with heart failure and stage 1 through stage 4 chronic kidney disease, or unspecified chronic kidney disease (principal); J96.91 Respiratory failure, unspecified with hypoxia; J18.9 Pneumonia, unspecified organism; I50.31 Acute diastolic (congestive) heart failure; J84.9 Interstitial pulmonary disease, unspecified; N18.9 Chronic kidney disease, unspecified; J44.9 Chronic obstructive pulmonary disease, unspecified; E78.5 Hyperlipidemia, unspecified; E11.22 Type 2 diabetes mellitus with diabetic chronic kidney disease; Z79.899 Other long term (current) drug therapy; H91.90 Unspecified hearing loss, unspecified ear; H54.7 Unspecified visual loss; Z97.4 Presence of external hearing-aid; E78.00 Pure hypercholesterolemia, unspecified; K59.09 Other constipation; M19.90 Unspecified osteoarthritis, unspecified site; G89.29 Other chronic pain; M54.9 Dorsalgia, unspecified; E11.42 Type 2 diabetes mellitus with diabetic polyneuropathy; E66.9 Obesity, unspecified; Z85.038 Personal history of other malignant neoplasm of large intestine; Z98.49 Cataract extraction status, unspecified eye; Z90.49 Acquired absence of other specified parts of digestive tract; Z90.710 Acquired absence of both cervix and uterus; Z20.822 Contact with and (suspected) exposure to COVID-19
CPT/HCPCS: 0241U; 36415; 71275; 80048; 80053; 83735; 84100; 84132; 85025; 93306; 94640; 97110; 97161; 97530; A9270-GY; C9113; J1644; J1940; J1956; J7500; J7620-GY; J8540; Q9967; U0002